=== PATIENT | female | born 1940 | race Caucasian/White ===

== ENCOUNTER 2017-05-11 06:55 | Day surgery (SDC) | payer MEDICARE, BC ==
[~2017-05-11 06:55] MED LIST: Lactated Ringers 1,000 ML IV SCH; Lidocaine 1%/Sod Bicarbonate in NS 8.4% 1 ML Syringe IV PRN; Sodium Chloride 0.9% 10 ML Syringe FLUSH PRN
--- NOTE | 2017-05-11 07:39 | PCM.PREANE ---
Preanesthetic Assessment - Anesthesia/Transfusion/Family Hx Anesthesia History: Prior Anesthesia Reaction Type of Anesthesia Reaction: Excessive Nausea/Vomiting Family History of Anesthesia Reaction: No Transfusion History: Prior Transfusion Without Reaction Intubation History: Unknown - Review of Systems General: No Symptoms Pulmonary: No Symptoms Cardiovascular: Palpitations, Other (Holter monitor recently. No changes noted. Dr. Viktor moyer with planned procedure. Atrial Fibrilation. ) Gastrointestinal: Other (GERD) Neurological: Other (Chronic Back Pain. Scheduled for a epidural steroid injection soon. ) Other: Reports: Easy Bruising (Anticoagulated off Pradaxa as planned for procedure. ), Diabetes, Depression, Anxiety - Physical Assessment NPO Status Date: 05/10/17 NPO Status Time: 23:00 Pulse: 54 O2 Sat by Pulse Oximetry: 97 Respiratory Rate: 16 Blood Pressure: 141/85 Temperature: 36.4 C Weight: 76.8 kg ASA Class: 3 Mental Status: Alert & Oriented x3 Airway Class: Mallampati = 1 Dentition: Reports: Dentures (Upper and Lower) Thyro-Mental Finger Breadths: 2 Mouth Opening Finger Breadths: 3 ROM/Head Extension: Full Lungs: Clear to Auscultation, Normal Respiratory Effort Cardiovascular: Irregular Rhythm - Imaging/EKG Impressions: Reviewed: A Fib, Rate 76, PVCs noted. - Allergies Allergies/Adverse Reactions: Allergies Allergy/AdvReac Type Severity Reaction Status Date / Time Penicillins Allergy Rash Verified 05/10/17 15:45 ranitidine [From Zantac] Allergy Nausea and Verified 05/10/17 15:45 Vomiting - Anesthesia Plan Free Text/Narrative:: Took her Cardizem this morning. She takes her Bisoprolol in the evening. - Acknowledgements Anesthesia Type Planned: MAC Pt an Appropriate Candidate for the Planned Anesthesia: Yes Alternatives and Risks of Anesthesia Discussed w Pt/Guardian: Yes Pt/Guardian Understands and Agrees with Anesthesia Plan: Yes PreAnesthesia Questionnaire HEENT History: Reports: Cataract, Impaired Vision, Retinal Detachment, Other ( See Below) Other HEENT History: has glasses, dentures Cardiovascular History: Reports: Afib, High Cholesterol, Hypertension, Other ( See Below) Other Cardiovascular History: palpitations Respiratory History: Reports: Sleep Apnea, SOB Gastrointestinal History: Reports: Gastritis, GERD, Hemorrhoids Other OB/BYN History: hysterectomy and mesh in place to hold her bladder up Musculoskeletal History: Reports: Arthritis, Gout, Osteoarthritis, Osteoporosis , RA, Other (See Below) Other Musculoskeletal History: muscle aches, spinal stenosis, spondylolthesis tenosynovits of ankle, degenerative joint disease, stress fracture Neurological History: Reports: Other (See Below) Other Neuro History: cervical pain, spinal stenosis Psychiatric History: Reports: Anxiety, Depression Endocrine/Metabolic History: Reports: Diabetes, Type II Hematologic History: Reports: None Immunologic History: Reports: None Oncologic (Cancer) History: Reports: None Dermatologic History: Reports: Other (See Below) Other Dermatologic History: pre skin cancers she has removed every year - Infectious Disease History Infectious Disease History: Reports: Chicken Pox, Measles - Past Surgical History HEENT Surgical History: Reports: None, Cataract Surgery, Retinal, Tonsillectomy Cardiovascular Surgical History: Reports: None Respiratory Surgical History: Reports: None GI Surgical History: Reports: Appendectomy, Colonoscopy Female Surgical History: Reports: Hysterectomy, Other (See Below) Other Female Surgeries/Procedures: rectocele repair Endocrine Surgical History: Reports: None Musculoskeletal Surgical History: Reports: Hip Replacement, Knee Replacement, Other (See Below) Other Musculoskeletal Surgeries/Procedures:: right ankle surgery, left total hip replacement, bilateral knee replacements Oncologic Surgical History: Reports: None Dermatological Surgical History: Reports: None - SUBSTANCE USE Smoking Status *Q: Former Smoker Tobacco Use Within Last Twelve Months: No Second Hand Smoke Exposure: No Recreational Drug Use History: No - HOME MEDS Home Medications: Home Meds Brinzolamide/Brimonidine Tart [Simbrinza 1%-0.2% Eye Drops] 2 drop EYELF BID 08/11 [History] Celecoxib [CeleBREX] 100 mg PO DAILY 03/27/16 [History] Cholecalciferol (Vitamin D3) [Vitamin D3] 1,000 units PO DAILY 03/27/16 [History ] Dabigatran Etexilate Mesylate [Pradaxa] 150 mg PO BID 03/27/16 [History] Folic Acid 1 mg PO DAILY 03/27/16 [History] Hydroxychloroquine [Plaquenil] 200 mg PO BID 03/27/16 [History] Methotrexate 15 mg PO FR 03/27/16 [History] Omeprazole 40 mg PO DAILY 03/27/16 [History] Sertraline [Zoloft] 50 mg PO BEDTIME 03/27/16 [History] Simvastatin [Zocor] 20 mg PO BEDTIME 03/27/16 [History] Diltiazem [Cardizem CD] 360 mg PO DAILY #30 cap.cd 03/31/16 [Rx] Amitriptyline [Elavil] 10 mg PO BEDTIME 05/10/17 [History] Bisoprolol [Zebeta] 5 mg PO DAILY 05/10/17 [History] Calcium Carbonate/Vitamin D3 [Calcium 600 + Vit D 200] 1 tab PO DAILY 05/10/17 [ History] Canagliflozin [Invokana] 300 mg PO DAILY 05/10/17 [History] Furosemide [Lasix] 20 mg PO Q48H 05/10/17 [History] Valsartan 160 mg PO DAILY 05/10/17 [History] - CURRENT (IN HOUSE) MEDS Current Meds: Current Medications Lactated Ringer's (Ringers, Lactated) 1,000 mls @ 125 mls/hr IV ASDIRECTED KARINA Lidocaine/Sodium Bicarbonate (Buffered Lidocaine 1% In Ns 8.4%) 0.25 ml IV ONETIME PRN PRN Reason: Prior to IV Start Sodium Chloride (Saline Flush) 10 ml FLUSH ASDIRECTED PRN PRN Reason: Keep Vein Open
[2017-05-11] MEDS ORDERED: Ketamine 500 mg/10 ML MDV ONE (08:10)
[2017-05-11] MEDS ORDERED: Propofol 200 MG/20 ML SDV ONE (08:10)
[2017-05-11] MEDS ORDERED: Ondansetron 4 MG/2 ML SDV ONE (08:10)
[2017-05-11] MEDS ORDERED: Lidocaine 1% 4 ML ONE (08:10)
--- NOTE | 2017-05-11 09:08 | PCM.OPNOTE ---
- General Post-Op/Procedure Note Date of Surgery/Procedure: 05/11/17 Operative Procedure(s): EGD with bx colonoscopy to cecum Pre Op Diagnosis: GERD and chronic diarrhea and positive FITS test Post-Op Diagnosis: Same Anesthesia Technique: MAC Primary Surgeon: Luis Miguel Perez EBL in mLs: 0 Complications: None Condition: Good
--- NOTE | 2017-05-11 09:14 | PCM48HPAN ---
Post Anesthesia Note - EVALUATION WITHIN 48HRS OF ANESTHETIC Vital Signs in Normal Range: Yes Patient Participated in Evaluation: Yes Respiratory Function Stable: Yes Airway Patent: Yes Cardiovascular Function Stable: Yes Hydration Status Stable: Yes Pain Control Satisfactory: Yes Nausea and Vomiting Control Satisfactory: Yes Mental Status Recovered: Yes
[2017-05-11 10:01] VITALS: BP 121/73
--- NOTE | 2017-05-11 12:28 | OR ---
DATE OF OPERATION: 05/11/2017 SURGEON: Luis Miguel Perez MD PREOPERATIVE DIAGNOSIS: Gastroesophageal reflux disease. POSTOPERATIVE DIAGNOSIS: Gastroesophageal reflux disease. OPERATION PERFORMED: Esophagogastroduodenoscopy with biopsy. FINDINGS: Normal second portion of the duodenum, duodenal bulb, and pyloric channel. Antrum showed little erythema, which was biopsied. Body, cardia, and fundus of the stomach did not see any pathology. GE junction was located at 40 cm and showed some mild chronic esophagitis, but no acute process. Rest of the esophagus was free of any disease. ANESTHESIA: Procedure done under IV sedation. DESCRIPTION OF PROCEDURE: The patient was taken to the endoscopy room, placed in a supine position, connected to monitoring equipment, given IV sedation, and placed in left lateral position. Bite block was inserted. Video Olympus gastroscope was placed in the posterior oropharynx under direct vision, threaded past the cricopharyngeus, down the esophagus, and into the stomach. The stomach was insufflated. The scope was passed through the pylorus to the second portion of the duodenum. It was slowly withdrawn showing normal second portion of the duodenum, duodenal bulb, and pyloric channel. Antrum showed little redness and was biopsied. Body and cardia of the stomach were unremarkable. J-maneuver showed portion of the fundus and an intact hiatus. The scope was withdrawn to the GE junction, which showed mild chronic esophagitis, but no acute disease. Rest of the esophagus was viewed as the scope was withdrawn and was unremarkable. The patient tolerated the procedure. IV sedation continued for colonoscopy. Specimen sent to pathology in a labeled container. ESTIMATED BLOOD LOSS: MMODAL /[id number]
--- NOTE | 2017-05-11 12:34 | OR ---
DATE OF OPERATION: 05/11/2017 SURGEON: Luis Miguel Perez MD PREOPERATIVE DIAGNOSIS: Chronic diarrhea, positive FIT test. POSTOPERATIVE DIAGNOSIS: Chronic diarrhea, positive FIT test. OPERATION PERFORMED: Colonoscopy to the cecum with collection of specimen for analysis. FINDINGS: An area of diverticulosis, which is severe, in the sigmoid colon, which shows some spasm and probably accounts for her multiple trips to the bathroom a day. There are no angiodysplasias, neoplasias, large tumor, masses, ulcerations, or notable hemorrhoids. ANESTHESIA: Done under IV sedation. RECOMMENDATION: Bowel softeners. DESCRIPTION OF PROCEDURE: The patient was taken to the endoscopy room, placed in a supine position, connected to monitoring equipment, given IV sedation for upper GI endoscopy, and this was continued for colonoscopy. She was placed in the left lateral position. Perianal area was inspected and it was normal. Rectal exam showed good sphincter tone. A video Olympus colonoscope was then introduced into the rectum and threaded up to an area in the sigmoid colon with spasm. With careful advancement, the scope was able to pass through this segment and then on to the cecum, where the appendicular orifice was noted. Prep was excellent. [place] cleansing score grade A. The scope was inserted into the ileum, which was normal. It was then slowly withdrawn collecting stool for analysis. The cecum, ileum, ascending colon, transverse colon, descending colon, sigmoid colon, and rectum were reviewed. Retroflex was not done. The above noted was found. The patient tolerated the procedure and was sent to recovery room in a stable condition. ESTIMATED BLOOD LOSS: MMODAL /[id number]
== END 2017-05-11 09:55 | disposition home or self-care (01) ==
LOC: JD.SDS 06:55
PROVIDERS: ATTEND Surgery
DX: K29.50 Unspecified chronic gastritis without bleeding (principal); K57.30 Diverticulosis of large intestine without perforation or abscess without bleeding; K25.9 Gastric ulcer, unspecified as acute or chronic, without hemorrhage or perforation; K31.9 Disease of stomach and duodenum, unspecified; E11.9 Type 2 diabetes mellitus without complications; E78.5 Hyperlipidemia, unspecified; F41.9 Anxiety disorder, unspecified; K21.9 Gastro-esophageal reflux disease without esophagitis; Z79.01 Long term (current) use of anticoagulants; F32.9 Major depressive disorder, single episode, unspecified; Z90.49 Acquired absence of other specified parts of digestive tract; Z88.0 Allergy status to penicillin; Z88.8 Allergy status to other drugs, medicaments and biological substances; Z96.642 Presence of left artificial hip joint; Z96.698 Presence of other orthopedic joint implants; Z90.710 Acquired absence of both cervix and uterus; Z98.51 Tubal ligation status; Z79.899 Other long term (current) drug therapy; Z87.891 Personal history of nicotine dependence
CPT/HCPCS: 43239; 45378; 87046; 87427; 87493; 89055; J2405; J7120; 00810; 88305; J2704

== ENCOUNTER 2017-08-31 09:28 | Inpatient (IN) | payer MEDICARE, BC ==
[2017-08-31] MEDS ORDERED: Metoclopramide 10 MG/2 ML SDV IVPUSH ONE (10:05)
[2017-08-31] MEDS ORDERED: Diltiazem 25 MG/5 ML SDV IVPUSH ONE ×3 (10:08→12:24)
[2017-08-31] MEDS ORDERED: Sodium Chloride 0.9% 10 ML Syringe FLUSH PRN (10:08)
--- NOTE | 2017-08-31 10:10 | EDM.PDOC ---
ED HPI GENERAL MEDICAL PROBLEM - General Chief Complaint: Respiratory Problem Stated Complaint: [facility] Time Seen by Provider: 08/31/17 09:43 Source of Information: Reports: Patient, RN Notes Reviewed - History of Present Illness INITIAL COMMENTS - FREE TEXT/NARRATIVE: 76-year-old female has been brought in by [facility] with symptoms generalized weakness, nausea, "dry heaves" and some anterior chest discomfort. It sounds like her discomfort and the nausea dry heaves started during the night and towards compliance lead. She has had dry nonproductive cough for about 4 -5 days. She is not sure if she has had fever or chills with that or not. Her cough does continue. Her chest discomfort does not go to the shoulder or arm. She does have history of chronic atrial fib on eloquis blood thinner. She thinks she is been in that for "long time", not really sure if she is in that chronically or if she goes in and out. She is somewhat aware of palpitations and rapid heart rate this morning but cannot verbalize when she believes this may have started. Because she was not feeling well this morning she has not taken her usual morning meds although she did use her albuterol inhaler. Therefore her diltiazem 360 was not taken this morning as usual. She is not aware of personal history of coronary artery disease. She is a previous smoker having quit about 13 years ago. Chest Pain Score (Numeric/FACES): 4 - Related Data Allergies Allergy/AdvReac Type Severity Reaction Status Date / Time Penicillins Allergy Rash Verified 08/31/17 09:36 ranitidine [From Zantac] Allergy Nausea and Verified 08/31/17 09:36 Vomiting Home Meds: Home Meds Brinzolamide/Brimonidine Tart [Simbrinza 1%-0.2% Eye Drops] 2 drop EYELF BID 08/11 [History] Celecoxib [CeleBREX] 100 mg PO DAILY 03/27/16 [History] Cholecalciferol (Vitamin D3) [Vitamin D3] 1,000 units PO DAILY 03/27/16 [History ] Dabigatran Etexilate Mesylate [Pradaxa] 150 mg PO BID 03/27/16 [History] Folic Acid 1 mg PO DAILY 03/27/16 [History] Hydroxychloroquine [Plaquenil] 200 mg PO BID 03/27/16 [History] Methotrexate 15 mg PO FR 03/27/16 [History] Omeprazole 40 mg PO DAILY 03/27/16 [History] Sertraline [Zoloft] 50 mg PO BEDTIME 03/27/16 [History] Simvastatin [Zocor] 20 mg PO BEDTIME 03/27/16 [History] Diltiazem [Cardizem CD] 360 mg PO DAILY #30 cap.cd 03/31/16 [Rx] Amitriptyline [Elavil] 10 mg PO BEDTIME 05/10/17 [History] Bisoprolol [Zebeta] 5 mg PO DAILY 05/10/17 [History] Calcium Carbonate/Vitamin D3 [Calcium 600 + Vit D 200] 1 tab PO DAILY 05/10/17 [ History] Canagliflozin [Invokana] 300 mg PO DAILY 05/10/17 [History] Furosemide [Lasix] 20 mg PO DAILY 05/10/17 [History] Valsartan 320 mg PO DAILY 05/10/17 [History] Acetaminophen/Codeine [Tylenol with Codeine No.3 300MG/30MG] 1 tab PO Q4H PRN [History] Albuterol Sulfate [Ventolin Hfa] 18 gm IH ASDIRECTED PRN 08/31/17 [History] Apixaban [Eliquis] 5 mg PO DAILY 08/31/17 [History] Aspirin [Peach Aspirin] 81 mg PO DAILY 08/31/17 [History] Cyclobenzaprine [Flexeril] 10 mg PO BID 08/31/17 [History] Cyclobenzaprine [Flexeril] 10 mg PO DAILY PRN 08/31/17 [History] Multivitamin [Daily Rodrigo] 1 each PO DAILY 08/31/17 [History] Potassium Chloride 10 meq PO DAILY 08/31/17 [History] Vortioxetine Hydrobromide [Brintellix] 10 mg PO DAILY 08/31/17 [History] Past Medical History HEENT History: Reports: Cataract, Impaired Vision, Retinal Detachment, Other ( See Below) Other HEENT History: has glasses, dentures Cardiovascular History: Reports: Afib, High Cholesterol, Hypertension, Other ( See Below) Other Cardiovascular History: palpitations Respiratory History: Reports: Sleep Apnea, SOB Gastrointestinal History: Reports: Gastritis, GERD, Hemorrhoids Other OB/BYN History: hysterectomy and mesh in place to hold her bladder up Musculoskeletal History: Reports: Arthritis, Gout, Osteoarthritis, Osteoporosis , RA, Other (See Below) Other Musculoskeletal History: muscle aches, spinal stenosis, spondylolthesis tenosynovits of ankle, degenerative joint disease, stress fracture Neurological History: Reports: Other (See Below) Other Neuro History: cervical pain, spinal stenosis Psychiatric History: Reports: Anxiety, Depression Endocrine/Metabolic History: Reports: Diabetes, Type II Hematologic History: Reports: None Immunologic History: Reports: None Oncologic (Cancer) History: Reports: None Dermatologic History: Reports: Other (See Below) Other Dermatologic History: pre skin cancers she has removed every year - Infectious Disease History Infectious Disease History: Reports: Chicken Pox, Measles - Past Surgical History HEENT Surgical History: Reports: None, Cataract Surgery, Retinal, Tonsillectomy Cardiovascular Surgical History: Reports: None Respiratory Surgical History: Reports: None GI Surgical History: Reports: Appendectomy, Colonoscopy Female Surgical History: Reports: Hysterectomy, Other (See Below) Other Female Surgeries/Procedures: rectocele repair Endocrine Surgical History: Reports: None Musculoskeletal Surgical History: Reports: Hip Replacement, Knee Replacement, Other (See Below) Other Musculoskeletal Surgeries/Procedures:: right ankle surgery, left total hip replacement, bilateral knee replacements Oncologic Surgical History: Reports: None Dermatological Surgical History: Reports: None Social & Family History - Family History Family Medical History: Noncontributory Oncologic: Reports: Breast - Tobacco Use Smoking Status *Q: Former Smoker Years of Tobacco use: 12 Packs/Tins Daily: 1 Used Tobacco, but Quit: Yes Month Tobacco Last Used: 1993 Second Hand Smoke Exposure: No - Caffeine Use Caffeine Use: Reports: Coffee - Recreational Drug Use Recreational Drug Use: No - Living Situation & Occupation Living situation: Reports: , Alone Occupation: Retired ED ROS GENERAL - Review of Systems Review Of Systems: See Below Constitutional: Reports: Fever, Chills (Possible), Malaise, Weakness ( Generalized) HEENT: Denies: Sinus Problem, Throat Pain Respiratory: Reports: Shortness of Breath, Cough (Nonproductive for about the past 5 days). Denies: Wheezing (This morning), Pleuritic Chest Pain Cardiovascular: Reports: Chest Pain (She does have anterior chest discomfort this morning), Lightheadedness, Palpitations (Mild). Denies: Edema Endocrine: Reports: Fatigue GI/Abdominal: Reports: Nausea, Vomiting (Dry heaves this morning). Denies: Abdominal Pain Musculoskeletal: Denies: Shoulder Pain, Arm Pain, Back Pain Skin: Reports: No Symptoms Neurological: Reports: Dizziness ED EXAM, GENERAL - Physical Exam Exam: See Below (Mild) General Appearance: Alert Eye Exam: Bilateral Eye: PERRL Nose: Normal Inspection Throat/Mouth: Normal Inspection, Normal Oropharynx Head: Atraumatic. No: Facial Swelling Neck: Supple, Full Range of Motion Respiratory/Chest: No Respiratory Distress, Lungs Clear Cardiovascular: Tachycardia, Irregularly Irregular GI/Abdominal: Soft, Non-Tender Back Exam: No: CVA Tenderness (L), CVA Tenderness (R) Extremities: Normal Inspection, Normal Range of Motion. No: Pedal Edema, Leg Pain, Increased Warmth, Redness Neurological: No Motor/Sensory Deficits Skin Exam: Warm, Dry, Normal Color EKG INTERPRETATION EKG Date: 08/31/17 Rhythm: A-Fib QRS: Normal ST-T: Depressed (V5 and V6) Course - Vital Signs Last Recorded V/S: Last Vital Signs Temp 97.4 F 08/31/17 09:36 Pulse 122 H 08/31/17 13:33 Resp 13 08/31/17 09:36 BP 96/60 08/31/17 13:33 Pulse Ox 89 L 08/31/17 09:36 - Orders/Labs/Meds Orders: Active Orders 24 hr Category Date Time Status Communication Order [RC] STAT Care 08/31/17 13:32 Active EKG 12 Lead [EKG Documentation Completion] [RC] STAT Care 08/31/17 10:04 Active Peripheral IV Care [RC] . DIRECTED Care 08/31/17 10:08 Active INFLUENZA A+B AG SCREEN [RM] Stat Lab 08/31/17 13:01 Ordered Diltiazem 125 mg Med 08/31/17 12:30 Active Sodium Chloride 0.9% [Normal Saline] 100 ml IV TITRATE Sodium Chloride 0.9% [Saline Flush] Med 08/31/17 10:08 Active 10 ml FLUSH ASDIRECTED PRN Peripheral IV Insertion Adult [OM.PC] Stat Oth 08/31/17 10:04 Ordered Medication Orders Diltiazem HCl 125 mg/ Sodium (Chloride) 125 mls @ 5 mls/hr IV TITRATE KARINA; 5 MG /HR PRN Reason: Protocol Last Titration: 08/31/17 13:29 Dose: 10 mg/hr, 10 mls/hr Admin: 08/31/17 12:43 Dose: 5 mg/hr, 5 mls/hr Sodium Chloride (Saline Flush) 10 ml FLUSH ASDIRECTED PRN PRN Reason: Keep Vein Open Last Admin: 08/31/17 10:17 Dose: 10 ml Labs: Laboratory Tests 08/31/17 08/31/17 08/31/17 Range/Units 10:23 10:23 10:23 WBC 14.56 H (3.98-10.04) K/mm3 RBC 5.41 H (3.98-5.22) M/mm3 Hgb 16.1 H (11.2-15.7) gm/L Hct 51.1 H (34.1-44.9) % MCV 94.5 (79.4-94.8) fl MCH 29.8 (25.6-32.2) pg MCHC 31.5 L (32.2-35.5) g/dl RDW Std Deviation 54.6 H (36.4-46.3) fL Plt Count 179 L (182-369) K/mm3 MPV 10.2 (9.4-12.3) fl Neut % (Auto) 84.3 H (34.0-71.1) % Lymph % (Auto) 6.7 L (19.3-51.7) % [place] % (Auto) 8.2 (4.7-12.5) % Eos % (Auto) 0.2 L (0.7-5.8) Baso % (Auto) 0.3 (0.1-1.2) % Neut # (Auto) 12.28 H (1.56-6.13) K/mm3 Lymph # (Auto) 0.97 L (1.18-3.74) K/mm3 [place] # (Auto) 1.19 H (0.24-0.36) K/mm3 Eos # (Auto) 0.03 L (0.04-0.36) K/mm3 Baso # (Auto) 0.05 (0.01-0.08) K/mm3 Manual Slide Review Abnormal smear Sodium 139 (136-145) mEq/L Potassium 4.3 (3.5-5.1) mEq/L Chloride 102 (98-107) mEq/L Carbon Dioxide 23 (21-32) mEq/L Anion Gap 18.3 H (5-15) BUN 16 (7-18) mg/dL Creatinine 1.0 (0.55-1.02) mg/dL Est Cr Clr Drug Dosing 44.41 mL/min Estimated GFR (MDRD) 54 (>60) mL/min BUN/Creatinine Ratio 16.0 (14-18) Glucose 189 H (83-115) mg/dL Calcium 9.6 (8.5-10.1) mg/dL Total Bilirubin 0.7 (0.2-1.0) mg/dL AST 20 (15-37) U/L ALT 33 (14-59) U/L Alkaline Phosphatase 72 (46-116) U/L Troponin I 0.209 H* (0.00-0.056) ng/mL NT-Pro-B Natriuret Pep 6045 H (0-125) pg/mL Total Protein 7.4 (6.4-8.2) g/dl Albumin 3.7 (3.4-5.0) g/dl Globulin 3.7 gm/dL Albumin/Globulin Ratio 1.0 (1-2) 08/31/17 Range/Units 11:50 WBC (3.98-10.04) K/mm3 RBC (3.98-5.22) M/mm3 Hgb (11.2-15.7) gm/L Hct (34.1-44.9) % MCV (79.4-94.8) fl MCH (25.6-32.2) pg MCHC (32.2-35.5) g/dl RDW Std Deviation (36.4-46.3) fL Plt Count (182-369) K/mm3 MPV (9.4-12.3) fl Neut % (Auto) (34.0-71.1) % Lymph % (Auto) (19.3-51.7) % [place] % (Auto) (4.7-12.5) % Eos % (Auto) (0.7-5.8) Baso % (Auto) (0.1-1.2) % Neut # (Auto) (1.56-6.13) K/mm3 Lymph # (Auto) (1.18-3.74) K/mm3 [place] # (Auto) (0.24-0.36) K/mm3 Eos # (Auto) (0.04-0.36) K/mm3 Baso # (Auto) (0.01-0.08) K/mm3 Manual Slide Review Sodium (136-145) mEq/L Potassium (3.5-5.1) mEq/L Chloride (98-107) mEq/L Carbon Dioxide (21-32) mEq/L Anion Gap (5-15) BUN (7-18) mg/dL Creatinine (0.55-1.02) mg/dL Est Cr Clr Drug Dosing mL/min Estimated GFR (MDRD) (>60) mL/min BUN/Creatinine Ratio (14-18) Glucose (83-115) mg/dL Calcium (8.5-10.1) mg/dL Total Bilirubin (0.2-1.0) mg/dL AST (15-37) U/L ALT (14-59) U/L Alkaline Phosphatase (46-116) U/L Troponin I 0.364 H* (0.00-0.056) ng/mL NT-Pro-B Natriuret Pep (0-125) pg/mL Total Protein (6.4-8.2) g/dl Albumin (3.4-5.0) g/dl Globulin gm/dL Albumin/Globulin Ratio (1-2) Meds: Medications Generic Name Dose Route Start Last Admin Trade Name Freq PRN Reason Stop Dose Admin Diltiazem HCl 125 mg/ Sodium 125 mls @ 5 mls/hr 08/31/17 12:30 08/31/17 13:29 Chloride IV 10 mg/hr TITRATE KARINA 10 mls/hr Protocol Titration 5 MG/HR Sodium Chloride 10 ml 08/31/17 10:08 08/31/17 10:17 Saline Flush FLUSH 10 ml ASDIRECTED PRN Administration Keep Vein Open Discontinued Medications Generic Name Dose Route Start Last Admin Trade Name Freq PRN Reason Stop Dose Admin Diltiazem HCl 10 mg 08/31/17 10:08 08/31/17 10:17 Diltiazem IVPUSH 08/31/17 10:09 10 mg ONETIME ONE Administration Diltiazem HCl 10 mg 08/31/17 10:57 08/31/17 11:03 Diltiazem IVPUSH 08/31/17 10:58 10 mg ONETIME ONE Administration Diltiazem HCl 10 mg 08/31/17 12:24 08/31/17 12:39 Diltiazem IVPUSH 08/31/17 12:25 10 mg ONETIME ONE Administration Metoclopramide HCl 5 mg 08/31/17 10:05 08/31/17 10:17 Reglan IVPUSH 08/31/17 10:06 5 mg ONETIME ONE Administration - Re-Assessments/Exams Free Text/Narrative Re-Assessment/Exam: 08/31/17 13:28. Treated with diltiazem 10 mg IV shortly after patient arrival this did bring her rate down to about 120, we did treat with another 10 mg IV 2 over the next couple of hours and also diltiazem 5 mg drip started. Her rate did drop down to the 105-110 range but now more recently did go back up into the 120s and low 130s. We did increase her drip to 10 mg/hr. her first troponin came back at 0.2. Her second troponin came back at 0.364. It is strongly suspected that this is some demand ischemia from her more rapid heart rate this morning. That will be further monitored with serial troponins. We will be admitting her to ICU with her being on the diltiazem drip. She does feel much better from arrival. Her chest pain is gone. When further questioned she had not taken her diltiazem this morning due to her not feeling well when she first got up this morning. Departure - Departure Time of Disposition: 12:40 Disposition: Admitted As Inpatient 68 Condition: Fair Clinical Impression: Atrial fibrillation with RVR, Atypical chest pain - Discharge Information Referrals: Angel Tate MD [Primary Care Provider] - Forms: ED Department Discharge ED Communication - Discussed Case With (1) Discussed Case With (1): Admitting Provider (Dr Marrero, decision to admit at [facility] 12:44.) - My Orders Last 24 Hours: My Active Orders 08/31/17 10:04 EKG 12 Lead [EKG Documentation Completion] [RC] STAT Peripheral IV Insertion Adult [OM.PC] Stat 08/31/17 10:08 Peripheral IV Care [RC] . DIRECTED Sodium Chloride 0.9% [Saline Flush] 10 ml FLUSH ASDIRECTED PRN 08/31/17 12:30 Diltiazem 125 mg Sodium Chloride 0.9% [Normal Saline] 100 ml IV TITRATE 08/31/17 13:01 INFLUENZA A+B AG SCREEN [RM] Stat 08/31/17 13:32 Communication Order [RC] STAT - Assessment/Plan Last 24 Hours: My Active Orders 08/31/17 10:04 EKG 12 Lead [EKG Documentation Completion] [RC] STAT Peripheral IV Insertion Adult [OM.PC] Stat 08/31/17 10:08 Peripheral IV Care [RC] . DIRECTED Sodium Chloride 0.9% [Saline Flush] 10 ml FLUSH ASDIRECTED PRN 08/31/17 12:30 Diltiazem 125 mg Sodium Chloride 0.9% [Normal Saline] 100 ml IV TITRATE 08/31/17 13:01 INFLUENZA A+B AG SCREEN [RM] Stat 08/31/17 13:32 Communication Order [RC] STAT
--- NOTE | 2017-08-31 10:54 | CR ---
Chest: Frontal view of the chest is obtained. Comparison: Prior chest x-ray of 03/28/16. Slight increased lung markings are seen on the right side as an interval change from previous exam. Please correlate if patient has any symptoms of bronchitis. Findings could also relate to technique from slight patient rotation and portable technique. Lungs otherwise are clear. Heart size is normal. Mild tortuosity of the thoracic aorta is seen. Bony structures are osteopenic. Impression: 1. Questionable increased lung markings within the right chest as described above. 2. Other portions of the chest are felt to be stable. Nothing acute is otherwise seen. Diagnostic code #2
[2017-08-31] MEDS: Diltiazem 125 MG in Sodium Chloride 0.9% 100 ML IV SCH ×2 (12:43→23:19)
--- NOTE | 2017-08-31 16:08 | PCM.HP ---
H&P History of Present Illness - General Date of Service: 08/31/17 Admit Problem/Dx: Admission Diagnosis/Problem Admission Diagnosis/Problem Atrial fibrillation with rapid ventricular response Source of Information: Patient, Old Records, Provider, RN History Limitations: Reports: No Limitations - History of Present Illness Initial Comments - Free Text/Narative: Amrita Velez is a 76 yo female who presents to our ED today (08/31/17) via [facility]" with symptoms of generalized weakness, nausea, dry heaves, and anterior chest discomfort. Symptoms reportedly started earlier this morning. She does report a dry nonproductive cough for about the past 4-5 days. She's not sure if she's had any fever or chills with these symptoms. Chest discomfort does not radiate. She does have a history of chronic A. fib and is on a course for blood thinning. She is unsure if it is constant A. fib or if it is proximal. She's not feeling well this morning so she did not take her morning meds however she did take her albuterol inhaler. Because of this she did not receive her usual dose of diltiazem 360. She is unsure if she has a history of CAD. She is a prior smoker who quit 13 years ago. In the ED temperature was 97.4. Pulse 122. Respirations 13. Blood pressure 96 /60. Pulse ox 89%. EKG was obtained which shows A. fib with ST depression in V5 and V6. Labs are obtained: W CBC is elevated 14.56. Hemoglobin high at 16.1. Hematocrit high at 51.1. She is normocytic. Platelet are low at 179, 000. Neutrophils are elevated at 84.3%. Sodium was good at 139. Potassium 4.3. Chloride 102. Anion gap is high at 18.3. BUN is 1.0 EGFR is 54. Glucose is high at 189. Calcium is 9.6. Liver enzymes looked good with AST at 20, ALT at 33, alkaline phosphatase at 7.2. Troponin is 0.209. ProBNP is 6045. Protein 7.4. Albumin 3.7. Troponins repeated and is elevated to 0.364. She was given 10 mg IV push of diltiazem 3. She was also started on a Cardizem drip of 5 mg. Her rate did drop down to the 105-110 range however did come back up into the 120s and low 130s. Her drip was increased 10 mg per hour. Once her believed to be elevated due to demand ischemia. Chest x-ray was obtained and interpreted by Dr. Kent as having slightly increased lung markings on the right side is an interval change from previous exam. Please correlate if patient has symptoms of bronchitis. Advised also related to technique from slight patient rotation and portable technique. Lungs otherwise are clear. Heart size is normal. Mild tortuosity of the thoracic aorta seen. Bony structures are osteopenic. There is a history of: Retinal detachment, A. fib, HLD, HTN, palpitations, sleep apnea, GERD, gastritis, arthritis, gout, OA, osteoporosis, RA, spinal stenosis, DJD, anxiety, depression, type II DM. She is a former smoker. She says really admitted to the ICU. She is a full code. Her PCP is Dr. Yasemin Liz at [facility]. Chest Pain Score (Numeric/FACES): 3 - Related Data Allergies/Adverse Reactions: Allergies Allergy/AdvReac Type Severity Reaction Status Date / Time Penicillins Allergy Rash Verified 08/31/17 14:48 ranitidine [From Zantac] Allergy Nausea and Verified 08/31/17 14:48 Vomiting Home Medications: Home Meds Brinzolamide/Brimonidine Tart [Simbrinza 1%-0.2% Eye Drops] 2 drop EYELF BID 08/11 [History] Celecoxib [CeleBREX] 100 mg PO DAILY 03/27/16 [History] Cholecalciferol (Vitamin D3) [Vitamin D3] 1,000 units PO DAILY 03/27/16 [History ] Dabigatran Etexilate Mesylate [Pradaxa] 150 mg PO BID 03/27/16 [History] Folic Acid 1 mg PO DAILY 03/27/16 [History] Hydroxychloroquine [Plaquenil] 200 mg PO BID 03/27/16 [History] Methotrexate 15 mg PO FR 03/27/16 [History] Omeprazole 40 mg PO DAILY 03/27/16 [History] Sertraline [Zoloft] 50 mg PO BEDTIME 03/27/16 [History] Simvastatin [Zocor] 20 mg PO BEDTIME 03/27/16 [History] Diltiazem [Cardizem CD] 360 mg PO DAILY #30 cap.cd 03/31/16 [Rx] Amitriptyline [Elavil] 10 mg PO BEDTIME 05/10/17 [History] Bisoprolol [Zebeta] 5 mg PO DAILY 05/10/17 [History] Calcium Carbonate/Vitamin D3 [Calcium 600 + Vit D 200] 1 tab PO DAILY 05/10/17 [ History] Canagliflozin [Invokana] 300 mg PO DAILY 05/10/17 [History] Furosemide [Lasix] 20 mg PO DAILY 05/10/17 [History] Valsartan 320 mg PO DAILY 05/10/17 [History] Acetaminophen/Codeine [Tylenol with Codeine No.3 300MG/30MG] 1 tab PO Q4H PRN [History] Albuterol Sulfate [Ventolin Hfa] 18 gm IH ASDIRECTED PRN 08/31/17 [History] Apixaban [Eliquis] 5 mg PO DAILY 08/31/17 [History] Aspirin [Dooly Aspirin] 81 mg PO DAILY 08/31/17 [History] Cyclobenzaprine [Flexeril] 10 mg PO BID 08/31/17 [History] Cyclobenzaprine [Flexeril] 10 mg PO DAILY PRN 08/31/17 [History] Multivitamin [Daily Rodrigo] 1 each PO DAILY 08/31/17 [History] Potassium Chloride 10 meq PO DAILY 08/31/17 [History] Vortioxetine Hydrobromide [Brintellix] 10 mg PO DAILY 08/31/17 [History] Past Medical History HEENT History: Reports: Cataract, Impaired Vision, Retinal Detachment, Other ( See Below) Other HEENT History: has glasses, dentures Cardiovascular History: Reports: Afib, High Cholesterol, Hypertension, Other ( See Below) Other Cardiovascular History: palpitations Respiratory History: Reports: Sleep Apnea, SOB Gastrointestinal History: Reports: Gastritis, GERD, Hemorrhoids Genitourinary History: Reports: None Other OB/BYN History: hysterectomy and mesh in place to hold her bladder up Musculoskeletal History: Reports: Arthritis, Gout, Osteoarthritis, Osteoporosis , RA, Other (See Below) Other Musculoskeletal History: muscle aches, spinal stenosis, spondylolthesis tenosynovits of ankle, degenerative joint disease, stress fracture Neurological History: Reports: Other (See Below) Other Neuro History: cervical pain, spinal stenosis Psychiatric History: Reports: Anxiety, Depression Endocrine/Metabolic History: Reports: Diabetes, Type II Other Endocrine/Metabolic History: "Pre-diabetic" Hematologic History: Reports: None Immunologic History: Reports: None Oncologic (Cancer) History: Reports: None Other Oncologic History: "Skin cancer to forehead. I get it removed every year" Dermatologic History: Reports: Other (See Below) Other Dermatologic History: skin cancers she has removed every year to forehead - Infectious Disease History Infectious Disease History: Reports: Chicken Pox, Measles - Past Surgical History HEENT Surgical History: Reports: None, Cataract Surgery, Retinal, Tonsillectomy Cardiovascular Surgical History: Reports: None Respiratory Surgical History: Reports: None GI Surgical History: Reports: Appendectomy, Colonoscopy Female Surgical History: Reports: Hysterectomy, Other (See Below) Other Female Surgeries/Procedures: rectocele repair Endocrine Surgical History: Reports: None Musculoskeletal Surgical History: Reports: Hip Replacement, Knee Replacement, Other (See Below) Other Musculoskeletal Surgeries/Procedures:: bilateral great toe surgery ( "replaced"), left total hip replacement, bilateral knee replacements Oncologic Surgical History: Reports: None Dermatological Surgical History: Reports: None Social & Family History - Family History Family Medical History: Noncontributory Musculoskeletal: Reports: Arthritis Neurological: Reports: CVA, TIA Other Neurological Family History: Grandfather had a stroke. Brother had TIAs. Psychiatric: Reports: Anxiety, Depression Other Psychiatric Family History: Mother and sister. Hematologic: Reports: Other (See Below) Other Hematologic Family History: Mother has antibodies in her blood and has to have frequent transfusions. Oncologic: Reports: Breast, Pancreatic Other Oncologic Family History: Sister - Pancreatic cancer. Uncle - lung cancer. Daughter - breast cancer - Tobacco Use Smoking Status *Q: Former Smoker Years of Tobacco use: 12 Packs/Tins Daily: 1 Used Tobacco, but Quit: Yes Month Tobacco Last Used: 1993 Second Hand Smoke Exposure: No - Caffeine Use Caffeine Use: Reports: Coffee, Tea Other Caffeine Use: Daily use - Recreational Drug Use Recreational Drug Use: No - Living Situation & Occupation Living situation: Reports: , Alone Occupation: Retired H&P Review of Systems - Review of Systems: Review Of Systems: See Below General: Reports: Fever, Chills, Malaise, Weakness, Decreased Appetite HEENT: Denies: Ear Pain, Eye Pain, Headaches, Rhinitis, Sinus Congestion Pulmonary: Reports: Shortness of Breath, Wheezing, Pleuritic Chest Pain, Cough. Denies: Sputum Cardiovascular: Reports: Chest Pain, Palpitations, Dyspnea on Exertion. Denies : Lightheadedness, Syncope Gastrointestinal: Reports: Decreased Appetite. Denies: Abdominal Pain, Constipation, Diarrhea, Nausea, Vomiting Genitourinary: Reports: No Symptoms. Denies: Dysuria, Frequency, Burning, Pain , Urgency Musculoskeletal: Reports: No Symptoms. Denies: Neck Pain, Shoulder Pain, Arm Pain, Back Pain Skin: Reports: No Symptoms Psychiatric: Reports: No Symptoms Neurological: Reports: No Symptoms Hematologic/Lymphatic: Reports: No Symptoms Immunologic: Reports: No Symptoms Exam - Exam Exam: See Below - Vital Signs Vital Signs: Last Vital Signs Temp 97.8 F 08/31/17 15:56 Pulse 122 H 08/31/17 13:33 Resp 15 08/31/17 15:56 BP 112/60 08/31/17 15:56 Pulse Ox 97 08/31/17 15:56 Weight: 170 lb - Exam Quality Assessment: Supplemental Oxygen, DVT Prophylaxis General: Alert, Oriented, Cooperative, Mild Distress HEENT: PERRLA, Hearing Intact, Mucosa Moist & [place], Nares Patent, Normal Nasal Septum, Posterior Pharynx Clear, Conjunctiva Clear, EOMI, EACs Clear, TMs Clear Neck: Supple, Trachea Midline. No: JVD Lungs: Normal Respiratory Effort, Decreased Breath Sounds, Wheezing (globally ) Cardiovascular: Irregular Rhythm, Tachycardia GI/Abdominal Exam: Normal Bowel Sounds, Soft, Non-Tender, No Organomegaly, No Distention, No Abnormal Bruit, No Mass, Pelvis Stable (Female) Exam: Deferred Rectal (Female) Exam: Deferred Back Exam: Normal Inspection, Full Range of Motion Extremities: Normal Inspection, Normal Range of Motion, Non-Tender, No Pedal Edema, Normal Capillary Refill Peripheral Pulses: 2+: Posterior Tibial (L), Posterior Tibial (R), Dorsalis Pedis (L), Dorsalis Pedis (R), 3+: Radial (L), Radial (R) Skin: Warm, Dry, Intact Neurological: Cranial Nerves Intact (grossly ) Neuro Extensive - Mental Status: Alert, Oriented x3, Normal Mood/Affect, Normal Cognition, Memory Intact Psychiatric: Alert, Normal Affect, Normal Mood - Patient Data Result Diagrams: 08/31/17 10:23 08/31/17 10:23 *Q Meaningful Use (ADM) - VTE *Q VTE Criteria *Q: - Stroke *Q Stroke Criteria *Q: - AMI *Q AMI Criteria *Q: - Problem List (1) Atrial fibrillation with rapid ventricular response SNOMED Code(s): 415815053881324 ICD Code: I48.91 - UNSPECIFIED ATRIAL FIBRILLATION Status: Acute Priority : High Current Visit: Yes (2) Atypical chest pain SNOMED Code(s): 839758455 ICD Code: R07.89 - OTHER CHEST PAIN Status: Acute Priority: High Current Visit: Yes (3) HLD (hyperlipidemia) SNOMED Code(s): 07533470 ICD Code: E78.5 - HYPERLIPIDEMIA, UNSPECIFIED Status: Chronic Priority: Low Current Visit: No Qualifiers: Hyperlipidemia type: unspecified Qualified Code(s): E78.5 - Hyperlipidemia , unspecified (4) HTN (hypertension) SNOMED Code(s): 71930009 ICD Code: I10 - ESSENTIAL (PRIMARY) HYPERTENSION Status: Chronic Priority : Low Current Visit: No Qualifiers: Hypertension type: unspecified Qualified Code(s): I10 - Essential (primary ) hypertension (5) Sleep apnea SNOMED Code(s): 65079209 ICD Code: G47.30 - SLEEP APNEA, UNSPECIFIED Status: Chronic Priority: Low Current Visit: Yes Qualifiers: Sleep apnea type: unspecified type Qualified Code(s): G47.30 - Sleep apnea , unspecified (6) GERD (gastroesophageal reflux disease) SNOMED Code(s): 142289396 ICD Code: K21.9 - GASTRO-ESOPHAGEAL REFLUX DISEASE WITHOUT ESOPHAGITIS Status: Chronic Priority: Low Current Visit: No (7) Rheumatoid arteritis SNOMED Code(s): 072741268 ICD Code: I00 - RHEUMATIC FEVER WITHOUT HEART INVOLVEMENT Status: Chronic Priority: Low Current Visit: No (8) Age related osteoporosis SNOMED Code(s): 212691073 ICD Code: M81.0 - AGE-RELATED OSTEOPOROSIS W/O CURRENT PATHOLOGICAL FRACTURE Status: Chronic Priority: Low Current Visit: No Qualifiers: Presence of current pathological fracture: unspecified Qualified Code(s): M81.0 - Age-related osteoporosis without current pathological fracture (9) DJD (degenerative joint disease) SNOMED Code(s): 988896500 ICD Code: M19.90 - UNSPECIFIED OSTEOARTHRITIS, UNSPECIFIED SITE Status: Chronic Priority: Low Current Visit: No Qualifiers: Osteoarthritis location: unspecified site Osteoarthritis type: primary Qualified Code(s): M19.91 - Primary osteoarthritis, unspecified site (10) Anxiety SNOMED Code(s): 87621114 ICD Code: F41.9 - ANXIETY DISORDER, UNSPECIFIED Status: Chronic Priority : Low Current Visit: No (11) Other specified depressive episodes SNOMED Code(s): 96718356 ICD Code: F32.89 - OTHER SPECIFIED DEPRESSIVE EPISODES Status: Chronic Priority: Low Current Visit: No (12) Type II diabetes mellitus SNOMED Code(s): 24425903 ICD Code: E11.9 - TYPE 2 DIABETES MELLITUS WITHOUT COMPLICATIONS Status: Chronic Priority: Low Current Visit: Yes Qualifiers: Diabetes mellitus complication status: with unspecified complications Diabetes mellitus group home insulin use: without group home use Qualified Code( s): E11.8 - Type 2 diabetes mellitus with unspecified complications (13) Bronchitis SNOMED Code(s): 57809853 ICD Code: J40 - BRONCHITIS, NOT SPECIFIED ACUTE OR CHRONIC Status: Acute Priority: High Current Visit: Yes (14) Elevated troponin SNOMED Code(s): 419407223, 845165215 ICD Code: R74.8 - ABNORMAL LEVELS OF OTHER SERUM ENZYMES Status: Acute Priority: High Current Visit: Yes (15) Dehydration SNOMED Code(s): 34261143 ICD Code: E86.0 - DEHYDRATION Status: Acute Priority: High Current Visit: Yes Problem List Initiated/Reviewed/Updated: Yes Orders Last 24hrs: Medication Orders Diltiazem HCl 125 mg/ Sodium (Chloride) 125 mls @ 5 mls/hr IV TITRATE KARINA; 5 MG /HR PRN Reason: Protocol Last Titration: 08/31/17 14:19 Dose: 10 mg/hr, 10 mls/hr Titration: 08/31/17 13:29 Dose: 15 mg/hr, 15 mls/hr Titration: 08/31/17 13:29 Dose: 10 mg/hr, 10 mls/hr Admin: 08/31/17 12:43 Dose: 5 mg/hr, 5 mls/hr Sodium Chloride (Saline Flush) 10 ml FLUSH ASDIRECTED PRN PRN Reason: Keep Vein Open Last Admin: 08/31/17 10:17 Dose: 10 ml Assessment/Plan Comment:: I/P: Acute: A-fib with RVR -Hx/o a-fib but unsure if it is constant or proximal -HR in 120's in ED -12-lead shows A-fib with ST depression in V5 and V6 -ED gave diltiazem 10mg IVP x3 and started diltiazem drip -Continue diltiazem drip - titrate Elevated troponin -0.2-->0.364 in ED -0.434 on floor -CKMB 1.4 -Likely demand ischemia from above -Continue to trend Bronchitis -Reports fever, non-productive cough, weakness for several days -WBC 14.56, CRP 5.6 -CXR shows increased lung markings in right chest -Xopenex QID - no albuterol as HR is uncontrolled -RT/IS -Levaquin 750mg daily -Fluids as ordered -Repeat CXR in 24-48 hrs Atypical Chest pain -Chest pain 3/10 which comes and goes -"Worse when I cough" -Reproducible with palpation -Likely 2/2 above Elevated BNP -No reported history of CHF, No prior BNP in system -Echo in AM -On daily PO lasix -> increase to 40mg IVP in AM for now -Diuresis -Monitor kidney function -Salt restrictions Dehydration -Dry mucous membranes -Reports poor oral intake -Anion gap 18.3 -IV fluids as ordered -Caution with fluids due to elevated BNP - will need to diuresis after Chronic: HLD HTN DAVIE - CPAP/RT GERD - home PPI Arthritis OA Osteoporosis RA - home methotrexate Spinal stenosis DJD Anxiety Depression Type II DM - home meds, SS insulin, QID AC and Bed glucose checks Plan: Admit to ICU CM for discharge planning PT/OT Routine AM labs GI prophylaxis: Home PPI DVT/PE prophylaxis: BASIL hose and home Eliquis Other orders as indicated above Home medications as ordered Code Status: DNR/DNI; PCP: Dr. Rudd at [facility].
[2017-08-31] MEDS ORDERED: Docusate Sodium 100 MG Cap PO PRN (18:58)
[2017-08-31] MEDS ORDERED: Acetaminophen/HYDROcodone 325-5 MG Tab PO PRN (18:58)
[2017-08-31] MEDS ORDERED: Polyethylene Glycol 3350 Powder 17 GM Packet PO PRN (18:58)
[2017-08-31] MEDS ORDERED: Bisacodyl 5 MG Tab PO PRN (18:58)
[2017-08-31] MEDS ORDERED: Ondansetron 4 MG/2 ML SDV IV PRN (18:58)
[2017-08-31] MEDS ORDERED: Ondansetron 4 MG Tab.DIS PO PRN (18:58)
[2017-08-31] MEDS ORDERED: Cyclobenzaprine 10 MG Tab PO PRN (19:08)
[2017-08-31] MEDS ORDERED: Acetaminophen/Codeine 300-30 MG Tab PO PRN (19:08)
[2017-08-31] MEDS: Sodium Chloride 0.9% 1,000 ML IV SCH (19:48)
[2017-08-31] MEDS: Levofloxacin/Dextrose 5%-Water 750 MG in Premix Bag 1 BAG IV SCH (19:52)
[2017-08-31] MEDS: Acetaminophen 325 MG Tab PO PRN (20:18)
[2017-08-31] MEDS: Famotidine 20 MG Tab PO SCH (20:20)
[2017-08-31] MEDS: Amitriptyline 10 MG Tab PO SCH (20:20)
[2017-08-31] MEDS: Hydroxychloroquine 200 MG Tab PO SCH (20:20)
[2017-08-31] MEDS: Sertraline 50 MG Tab PO SCH (20:22)
[2017-08-31] MEDS: Cyclobenzaprine 10 MG Tab PO SCH (20:23)
[2017-08-31] MEDS ORDERED: 50% Dextrose in Water 50 ML Syringe IVPUSH PRN (20:41)
[2017-08-31] MEDS ORDERED: hydrALAZINE 20 MG/ML SDV IVPUSH PRN (20:44)
[2017-08-31] MEDS ORDERED: Non-Formulary Medication 1 Each (Dabigatran 150 MG) PO SCH (21:00)
[2017-08-31] MEDS: Levalbuterol HCl 1.25 MG/3 ML Neb NEB SCH (21:03)
[2017-08-31] MEDS: Insulin Aspart 100 Units/ML 3 ML Pen SUBCUT SCH (21:34)
[2017-08-31] MEDS: Benzonatate 100 MG Cap PO PRN (23:17)
[2017-09-01] MEDS: Levalbuterol HCl 1.25 MG/3 ML Neb NEB SCH ×4 (05:40→22:06)
[2017-09-01] MEDS: Sodium Chloride 0.9% 1,000 ML IV SCH (05:52)
[2017-09-01] MEDS: Insulin Aspart 100 Units/ML 3 ML Pen SUBCUT SCH ×4 (06:05→21:45)
[2017-09-01] MEDS: Pantoprazole 40 MG Tab.CR PO SCH (06:05)
[2017-09-01] MEDS: Acetaminophen 325 MG Tab PO PRN (06:10)
[2017-09-01] MEDS: Benzonatate 100 MG Cap PO PRN (07:37)
[2017-09-01] MEDS: BRIMONIDINE TART EYELF SCH ×3 (07:40→20:26)
[2017-09-01] MEDS: BRINZOLAMIDE EYELF SCH ×3 (07:40→20:26)
[2017-09-01] MEDS: Apixaban 5 MG Tab PO SCH (08:58)
[2017-09-01] MEDS: Multivitamins,Therapeutic Tab PO SCH (08:58)
[2017-09-01] MEDS: Folic Acid 1 MG Tab PO SCH (08:59)
[2017-09-01] MEDS: Famotidine 20 MG Tab PO SCH (08:59)
[2017-09-01] MEDS: Hydroxychloroquine 200 MG Tab PO SCH ×2 (08:59→20:26)
[2017-09-01] MEDS: Metoprolol Succinate 50 MG Tab.ER PO SCH (08:59)
[2017-09-01] MEDS: Calcium Carbonate/Vitamin D3 600 MG-200 Units Tab PO SCH (08:59)
[2017-09-01] MEDS: Potassium Chloride 10 MEQ Tab.ER PO SCH (08:59)
[2017-09-01] MEDS: Celecoxib 100 MG Cap PO SCH (08:59)
[2017-09-01] MEDS: Cholecalciferol (Vitamin D3) 1,000 Unit Tab PO SCH (08:59)
[2017-09-01] MEDS: Furosemide 40 MG/4 ML VIAL IVPUSH SCH (09:00)
[2017-09-01] MEDS: Losartan 100 MG Tab PO SCH (09:00)
[2017-09-01] MEDS: Vortioxetine Hydrobromide [Trintellix] 10 MG PO SCH (09:00)
[2017-09-01] MEDS ORDERED: Furosemide 20 MG Tab PO SCH (09:00)
[2017-09-01] MEDS ORDERED: Methotrexate 2.5 MG Tab PO SCH (09:00)
[2017-09-01] MEDS: Aspirin 81 MG Tab.Chew PO SCH (09:00)
[2017-09-01] MEDS: Canagliflozin [Invokana] 300 MG PO SCH (09:00)
[2017-09-01] MEDS: Cyclobenzaprine 10 MG Tab PO SCH ×2 (09:00→20:26)
[2017-09-01] MEDS: Diltiazem 125 MG in Sodium Chloride 0.9% 100 ML IV SCH ×2 (11:21→22:31)
[2017-09-01] MEDS ORDERED: Acetaminophen/Codeine 300-30 MG Tab PO PRN (16:31)
[2017-09-01] MEDS ORDERED: hydrALAZINE 20 MG/ML SDV IVPUSH PRN (16:31)
--- NOTE | 2017-09-01 16:37 | PCM.PN ---
- General Info Date of Service: 09/01/17 Functional Status: Reports: Tolerating Diet, Urinating - Review of Systems General: Reports: Weakness HEENT: Reports: No Symptoms Pulmonary: Reports: Shortness of Breath Cardiovascular: Reports: No Symptoms Gastrointestinal: Reports: No Symptoms Genitourinary: Reports: No Symptoms Musculoskeletal: Reports: No Symptoms Skin: Reports: No Symptoms Neurological: Reports: No Symptoms Psychiatric: Reports: No Symptoms - Patient Data Vitals - Most Recent: Last Vital Signs Temp 37.1 C 09/01/17 12:00 Pulse 88 09/01/17 15:00 Resp 18 09/01/17 12:00 BP 108/61 09/01/17 15:00 Pulse Ox 97 09/01/17 15:41 Weight - Most Recent: 75.931 kg I&O - Last 24 Hours: Intake & Output 09/01/17 09/01/17 09/01/17 06:59 14:59 22:59 Intake Total 1364 480 Output Total 600 400 Balance 764 80 Lab Results Last 24 Hours: Laboratory Results - last 24 hr 08/31/17 08/31/17 08/31/17 Range/Units 18:58 18:58 18:58 WBC (3.98-10.04) K/mm3 RBC (3.98-5.22) M/mm3 Hgb (11.2-15.7) gm/L Hct (34.1-44.9) % MCV (79.4-94.8) fl MCH (25.6-32.2) pg MCHC (32.2-35.5) g/dl RDW Std Deviation (36.4-46.3) fL Plt Count (182-369) K/mm3 MPV (9.4-12.3) fl Neut % (Auto) (34.0-71.1) % Lymph % (Auto) (19.3-51.7) % Rains % (Auto) (4.7-12.5) % Eos % (Auto) (0.7-5.8) Baso % (Auto) (0.1-1.2) % Neut # (Auto) (1.56-6.13) K/mm3 Lymph # (Auto) (1.18-3.74) K/mm3 Rains # (Auto) (0.24-0.36) K/mm3 Eos # (Auto) (0.04-0.36) K/mm3 Baso # (Auto) (0.01-0.08) K/mm3 Manual Slide Review Sodium (136-145) mEq/L Potassium (3.5-5.1) mEq/L Chloride (98-107) mEq/L Carbon Dioxide (21-32) mEq/L Anion Gap (5-15) BUN (7-18) mg/dL Creatinine (0.55-1.02) mg/dL Est Cr Clr Drug Dosing mL/min Estimated GFR (MDRD) (>60) mL/min BUN/Creatinine Ratio (14-18) Glucose (83-115) mg/dL POC Glucose (83-110) mg/dL Calcium (8.5-10.1) mg/dL Magnesium (1.8-2.4) mg/dl CK-MB (CK-2) 1.4 (0-3.6) ng/ml Troponin I 0.434 H* (0.00-0.056) ng/mL C-Reactive Protein 5.6 H* (<1.0) mg/dL NT-Pro-B Natriuret Pep (0-125) pg/mL Urine Color (Yellow) Urine Appearance (Clear) Urine pH (5.0-8.0) Ur Specific [place] (1.005-1.030) Urine Protein (Negative) Urine Glucose (UA) (Negative) Urine Ketones (Negative) Urine Occult Blood (Negative) Urine Nitrite (Negative) Urine Bilirubin (Negative) Urine Urobilinogen (0.2-1.0) Ur Leukocyte Esterase (Negative) Urine RBC (0-5) /hpf Urine WBC (0-5) /hpf Ur Epithelial Cells (0-5) /hpf Urine Bacteria (FEW) /hpf Urine Mucus (FEW) /hpf 08/31/17 08/31/17 09/01/17 Range/Units 21:05 21:25 05:18 WBC (3.98-10.04) K/mm3 RBC (3.98-5.22) M/mm3 Hgb (11.2-15.7) gm/L Hct (34.1-44.9) % MCV (79.4-94.8) fl MCH (25.6-32.2) pg MCHC (32.2-35.5) g/dl RDW Std Deviation (36.4-46.3) fL Plt Count (182-369) K/mm3 MPV (9.4-12.3) fl Neut % (Auto) (34.0-71.1) % Lymph % (Auto) (19.3-51.7) % Rains % (Auto) (4.7-12.5) % Eos % (Auto) (0.7-5.8) Baso % (Auto) (0.1-1.2) % Neut # (Auto) (1.56-6.13) K/mm3 Lymph # (Auto) (1.18-3.74) K/mm3 Rains # (Auto) (0.24-0.36) K/mm3 Eos # (Auto) (0.04-0.36) K/mm3 Baso # (Auto) (0.01-0.08) K/mm3 Manual Slide Review Sodium (136-145) mEq/L Potassium (3.5-5.1) mEq/L Chloride (98-107) mEq/L Carbon Dioxide (21-32) mEq/L Anion Gap (5-15) BUN (7-18) mg/dL Creatinine (0.55-1.02) mg/dL Est Cr Clr Drug Dosing mL/min Estimated GFR (MDRD) (>60) mL/min BUN/Creatinine Ratio (14-18) Glucose (83-115) mg/dL POC Glucose 154 H (83-110) mg/dL Calcium (8.5-10.1) mg/dL Magnesium (1.8-2.4) mg/dl CK-MB (CK-2) (0-3.6) ng/ml Troponin I (0.00-0.056) ng/mL C-Reactive Protein (<1.0) mg/dL NT-Pro-B Natriuret Pep 65810 H (0-125) pg/mL Urine Color Yellow (Yellow) Urine Appearance Clear (Clear) Urine pH 5.5 (5.0-8.0) Ur Specific [place] > or = 1.030 (1.005-1.030) Urine Protein 2+ H (Negative) Urine Glucose (UA) 2+ H (Negative) Urine Ketones Trace H (Negative) Urine Occult Blood Trace-lysed H (Negative) Urine Nitrite Negative (Negative) Urine Bilirubin Negative (Negative) Urine Urobilinogen 0.2 (0.2-1.0) Ur Leukocyte Esterase Negative (Negative) Urine RBC 0-5 (0-5) /hpf Urine WBC 5-10 H (0-5) /hpf Ur Epithelial Cells 5-10 H (0-5) /hpf Urine Bacteria Rare (FEW) /hpf Urine Mucus Not seen (FEW) /hpf 09/01/17 09/01/17 09/01/17 Range/Units 05:47 05:48 05:48 WBC 13.33 H (3.98-10.04) K/mm3 RBC 4.52 (3.98-5.22) M/mm3 Hgb 13.8 (11.2-15.7) gm/L Hct 42.9 (34.1-44.9) % MCV 94.9 H (79.4-94.8) fl MCH 30.5 (25.6-32.2) pg MCHC 32.2 (32.2-35.5) g/dl RDW Std Deviation 54.1 H (36.4-46.3) fL Plt Count 135 L (182-369) K/mm3 MPV 10.9 (9.4-12.3) fl Neut % (Auto) 80.3 H (34.0-71.1) % Lymph % (Auto) 12.6 L (19.3-51.7) % Rains % (Auto) 6.0 (4.7-12.5) % Eos % (Auto) 0.6 L (0.7-5.8) Baso % (Auto) 0.2 (0.1-1.2) % Neut # (Auto) 10.70 H (1.56-6.13) K/mm3 Lymph # (Auto) 1.68 (1.18-3.74) K/mm3 Rains # (Auto) 0.80 H (0.24-0.36) K/mm3 Eos # (Auto) 0.08 (0.04-0.36) K/mm3 Baso # (Auto) 0.03 (0.01-0.08) K/mm3 Manual Slide Review Normal smear Sodium 139 (136-145) mEq/L Potassium 3.7 (3.5-5.1) mEq/L Chloride 106 (98-107) mEq/L Carbon Dioxide 24 (21-32) mEq/L Anion Gap 12.7 (5-15) BUN 18 (7-18) mg/dL Creatinine 0.8 (0.55-1.02) mg/dL Est Cr Clr Drug Dosing 55.52 mL/min Estimated GFR (MDRD) > 60 (>60) mL/min BUN/Creatinine Ratio 22.5 H (14-18) Glucose 100 (83-115) mg/dL POC Glucose 99 (83-110) mg/dL Calcium 8.6 (8.5-10.1) mg/dL Magnesium 1.7 L (1.8-2.4) mg/dl CK-MB (CK-2) (0-3.6) ng/ml Troponin I 0.189 H* (0.00-0.056) ng/mL C-Reactive Protein 6.5 H* (<1.0) mg/dL NT-Pro-B Natriuret Pep (0-125) pg/mL Urine Color (Yellow) Urine Appearance (Clear) Urine pH (5.0-8.0) Ur Specific [place] (1.005-1.030) Urine Protein (Negative) Urine Glucose (UA) (Negative) Urine Ketones (Negative) Urine Occult Blood (Negative) Urine Nitrite (Negative) Urine Bilirubin (Negative) Urine Urobilinogen (0.2-1.0) Ur Leukocyte Esterase (Negative) Urine RBC (0-5) /hpf Urine WBC (0-5) /hpf Ur Epithelial Cells (0-5) /hpf Urine Bacteria (FEW) /hpf Urine Mucus (FEW) /hpf 09/01/17 Range/Units 11:51 WBC (3.98-10.04) K/mm3 RBC (3.98-5.22) M/mm3 Hgb (11.2-15.7) gm/L Hct (34.1-44.9) % MCV (79.4-94.8) fl MCH (25.6-32.2) pg MCHC (32.2-35.5) g/dl RDW Std Deviation (36.4-46.3) fL Plt Count (182-369) K/mm3 MPV (9.4-12.3) fl Neut % (Auto) (34.0-71.1) % Lymph % (Auto) (19.3-51.7) % Rains % (Auto) (4.7-12.5) % Eos % (Auto) (0.7-5.8) Baso % (Auto) (0.1-1.2) % Neut # (Auto) (1.56-6.13) K/mm3 Lymph # (Auto) (1.18-3.74) K/mm3 Rains # (Auto) (0.24-0.36) K/mm3 Eos # (Auto) (0.04-0.36) K/mm3 Baso # (Auto) (0.01-0.08) K/mm3 Manual Slide Review Sodium (136-145) mEq/L Potassium (3.5-5.1) mEq/L Chloride (98-107) mEq/L Carbon Dioxide (21-32) mEq/L Anion Gap (5-15) BUN (7-18) mg/dL Creatinine (0.55-1.02) mg/dL Est Cr Clr Drug Dosing mL/min Estimated GFR (MDRD) (>60) mL/min BUN/Creatinine Ratio (14-18) Glucose (83-115) mg/dL POC Glucose 102 (83-110) mg/dL Calcium (8.5-10.1) mg/dL Magnesium (1.8-2.4) mg/dl CK-MB (CK-2) (0-3.6) ng/ml Troponin I (0.00-0.056) ng/mL C-Reactive Protein (<1.0) mg/dL NT-Pro-B Natriuret Pep (0-125) pg/mL Urine Color (Yellow) Urine Appearance (Clear) Urine pH (5.0-8.0) Ur Specific [place] (1.005-1.030) Urine Protein (Negative) Urine Glucose (UA) (Negative) Urine Ketones (Negative) Urine Occult Blood (Negative) Urine Nitrite (Negative) Urine Bilirubin (Negative) Urine Urobilinogen (0.2-1.0) Ur Leukocyte Esterase (Negative) Urine RBC (0-5) /hpf Urine WBC (0-5) /hpf Ur Epithelial Cells (0-5) /hpf Urine Bacteria (FEW) /hpf Urine Mucus (FEW) /hpf Med Orders - Current: Current Medications Acetaminophen (Tylenol) 650 mg PO Q4H PRN PRN Reason: Pain (Mild 1-3)/fever Last Admin: 09/01/17 06:10 Dose: 650 mg Acetaminophen/Codeine Phosphate (Tylenol With Codeine No.3 300mg/30mg) 1 tab PO Q6H PRN PRN Reason: Pain Hydrocodone Bitart/Acetaminophen ([place] 325-5 Mg) 1 tab PO Q4H PRN PRN Reason: Pain (moderate 4-6) Amitriptyline HCl (Elavil) 10 mg PO BEDTIME [facility] Last Admin: 08/31/17 20:20 Dose: 10 mg Apixaban (Eliquis) 5 mg PO DAILY [facility] Last Admin: 09/01/17 08:58 Dose: 5 mg Aspirin (Aspirin) 81 mg PO DAILY [facility] Last Admin: 09/01/17 09:00 Dose: Not Given Benzonatate (Tessalon Perles) 100 mg PO TID PRN PRN Reason: Cough Last Admin: 09/01/17 07:37 Dose: 100 mg Bisacodyl (Dulcolax) 5 mg PO DAILY PRN PRN Reason: Constipation Calcium Carbonate (Calcium Carbonate/Vitamin D 600 Mg-200 Unit) 1 tab PO DAILY [facility] Last Admin: 09/01/17 08:59 Dose: 1 tab Celecoxib (Celebrex) 100 mg PO DAILY [facility] Last Admin: 09/01/17 08:59 Dose: 100 mg Cholecalciferol (Vitamin D3) 1,000 units PO DAILY [facility] Last Admin: 09/01/17 08:59 Dose: 1,000 units Cyclobenzaprine HCl (Flexeril) 10 mg PO BID [facility] Last Admin: 09/01/17 09:00 Dose: Not Given Dextrose/Water (Dextrose 50% In Water) 50 ml IVPUSH ASDIRECTED PRN PRN Reason: Hypoglycemia Docusate Sodium (Colace) 100 mg PO BID PRN PRN Reason: Constipation Folic Acid (Folic Acid) 1 mg PO DAILY [facility] Last Admin: 09/01/17 08:59 Dose: 1 mg Furosemide (Lasix) 40 mg IVPUSH DAILY [facility] Last Admin: 09/01/17 09:00 Dose: 40 mg Hydralazine HCl (Apresoline) 20 mg IVPUSH Q6H PRN PRN Reason: Hypertension Hydroxychloroquine Sulfate (Plaquenil) 200 mg PO BID [facility] Last Admin: 09/01/17 08:59 Dose: 200 mg Diltiazem HCl 125 mg/ Sodium (Chloride) 125 mls @ 5 mls/hr IV TITRATE KARINA; 5 MG /HR PRN Reason: Protocol Last Titration: 09/01/17 13:33 Dose: 10 mg/hr, 10 mls/hr Levofloxacin/Dextrose 750 mg/ (Premix) 150 mls @ 100 mls/hr IV Q24H [facility] Stop: 09/01/17 23:00 Last Admin: 08/31/17 19:52 Dose: 100 mls/hr Sodium Chloride (Normal Saline) 1,000 mls @ 75 mls/hr IV ASDIRECTED [facility] Stop: 09/02/17 08:34 Last Admin: 09/01/17 05:52 Dose: 100 mls/hr Insulin Aspart (Novolog) 0 unit SUBCUT QIDACANDBED [facility] PRN Reason: Protocol Last Admin: 09/01/17 11:52 Dose: Not Given Levalbuterol HCl (Xopenex) 1.25 mg NEB QIDRT [facility] Last Admin: 09/01/17 15:39 Dose: 1.25 mg Levofloxacin (Levaquin) 750 mg PO Q24H [facility] Losartan Potassium (Cozaar) 150 mg PO DAILY [facility] Last Admin: 09/01/17 09:00 Dose: 150 mg Methotrexate (Methotrexate) 15 mg PO Fr@0900 [facility] Last Admin: 09/01/17 09:02 Dose: 15 mg Metoprolol Succinate (Toprol Xl) 100 mg PO DAILY [facility] Last Admin: 09/01/17 08:59 Dose: 100 mg Multivitamins (Thera) 1 each PO DAILY [facility] Last Admin: 09/01/17 08:58 Dose: 1 each Ondansetron HCl (Zofran Odt) 4 mg PO Q6H PRN PRN Reason: nausea, able to take PO Ondansetron HCl (Zofran) 4 mg IV Q6H PRN PRN Reason: Nausea/Vomiting Pantoprazole Sodium (Protonix) 40 mg PO DAILY@0700 [facility] Last Admin: 09/01/17 06:05 Dose: 40 mg Brinzolamide/Brimonidine Tart [ Simbrinza 1%-0.2% Eye Drop 0 each EYELF BID [facility] Last Admin: 09/01/17 09:01 Dose: Not Given Canagliflozin [ (Invokana] 300 Mg) 0 each PO DAILY [facility] Last Admin: 09/01/17 09:00 Dose: Not Given Vortioxetine Hydrobromide [ Trintellix] 10 Mg 0 each PO DAILY [facility] Last Admin: 09/01/17 09:00 Dose: Not Given Polyethylene Glycol (Miralax) 17 gm PO DAILY PRN PRN Reason: Constipation Potassium Chloride (Klor-Con 10) 10 meq PO DAILY [facility] Last Admin: 09/01/17 08:59 Dose: 10 meq Senna/Docusate Sodium (Senna Plus) 1 tab PO BID PRN PRN Reason: Constipation Sertraline HCl (Zoloft) 50 mg PO BEDTIME [facility] Last Admin: 08/31/17 20:22 Dose: 50 mg Sodium Chloride (Saline Flush) 10 ml FLUSH ASDIRECTED PRN PRN Reason: Keep Vein Open Last Admin: 08/31/17 10:17 Dose: 10 ml Discontinued Medications Acetaminophen/Codeine Phosphate (Tylenol With Codeine No.3 300mg/30mg) 1 tab PO Q4H PRN PRN Reason: Pain Cyclobenzaprine HCl (Flexeril) 10 mg PO DAILY PRN PRN Reason: Pain Diltiazem HCl (Diltiazem) 10 mg IVPUSH ONETIME ONE Stop: 08/31/17 10:09 Last Admin: 08/31/17 10:17 Dose: 10 mg Diltiazem HCl (Diltiazem) 10 mg IVPUSH ONETIME ONE Stop: 08/31/17 10:58 Last Admin: 08/31/17 11:03 Dose: 10 mg Diltiazem HCl (Diltiazem) 10 mg IVPUSH ONETIME ONE Stop: 08/31/17 12:25 Last Admin: 08/31/17 12:39 Dose: 10 mg Famotidine (Pepcid) 20 mg PO BID [facility] Last Admin: 09/01/17 08:59 Dose: 20 mg Furosemide (Lasix) 20 mg PO DAILY [facility] Hydralazine HCl (Apresoline) 10 mg IVPUSH Q6H PRN PRN Reason: Hypertension Metoclopramide HCl (Reglan) 5 mg IVPUSH ONETIME ONE Stop: 08/31/17 10:06 Last Admin: 08/31/17 10:17 Dose: 5 mg Non-Formulary Medication (Dabigatran) 150 mg PO BID KARINA - Exam Quality Assessment: Supplemental Oxygen, DVT Prophylaxis General: Alert, Oriented, Cooperative, No Acute Distress HEENT: Pupils Equal, Pupils Reactive, EOMI Neck: Supple, Trachea Midline, No JVD Lungs: Normal Respiratory Effort, Decreased Breath Sounds Cardiovascular: Regular Rate, Irregular Rhythm GI/Abdominal Exam: Normal Bowel Sounds, Soft, Non-Tender, No Organomegaly, No Distention (Female) Exam: Deferred Back Exam: Normal Inspection Extremities: Normal Inspection, Normal Capillary Refill Skin: Warm Neurological: No New Focal Deficit, Normal Speech Psy/Mental Status: Alert, Normal Affect, Normal Mood - Problem List Review Problem List Initiated/Reviewed/Updated: Yes - My Orders Last 24 Hours: My Active Orders 08/31/17 Dinner Heart Healthy Diet [DIET] 09/01/17 16:31 Acetaminophen/Codeine [Tylenol with Codeine No.3 300MG/30MG] 1 tab PO Q6H PRN hydrALAZINE [Apresoline] 20 mg IVPUSH Q6H PRN 09/02/17 19:00 Levofloxacin [Levaquin] 750 mg PO Q24H - Plan Plan:: I/P: Acute: A-fib with RVR -Hx/o a-fib but unsure if it is constant or proximal -HR in 120's in ED-->improved, will adjust oral meds using short acting for now. -12-lead shows A-fib with ST depression in V5 and V6 -ED gave diltiazem 10mg IVP x3 and started diltiazem drip -Continue diltiazem drip - titrate Elevated troponin -0.2-->0.364 in ED-->demand ischemia -0.434 on floor -CKMB 1.4 -Likely demand ischemia from above -Continue to trend Bronchitis will maintain empiric PNA coverage for now -Reports fever, non-productive cough, weakness for several days -WBC 14.56, CRP 5.6 -CXR shows increased lung markings in right chest -Xopenex QID - no albuterol as HR is uncontrolled -RT/IS -Levaquin 750mg daily -Fluids as ordered -Repeat CXR in 24-48 hrs; ordered 09/02/17 Atypical Chest pain -Chest pain 3/10 which comes and goes -"Worse when I cough"-->pleuritic, thus far negative resp work up. -Reproducible with palpation -Likely 2/2 above Elevated BNP -No reported history of CHF, No prior BNP in system -Echo in AM-->cancelled, recent 2D echo, less than 3 months ago -On daily PO lasix -> increase to 40mg IVP in AM for now -Diuresis -Monitor kidney function -Salt restrictions Dehydration -Dry mucous membranes -Reports poor oral intake -Anion gap 18.3 -IV fluids as ordered -Caution with fluids due to elevated BNP - will need to diuresis after Chronic: HLD HTN DAVIE - CPAP/RT GERD - home PPI Arthritis OA Osteoporosis RA - home methotrexate Spinal stenosis DJD Anxiety Depression Type II DM - home meds, SS insulin, QID AC and Bed glucose checks Plan: CM for discharge planning PT/OT Routine AM labs GI prophylaxis: Home PPI DVT/PE prophylaxis: BASIL hose and home Eliquis Other orders as indicated above Home medications as ordered Code Status: DNR/DNI; PCP: Dr[facility] Rudd at [facility].
[2017-09-01] MEDS: Levofloxacin/Dextrose 5%-Water 750 MG in Premix Bag 1 BAG IV SCH (18:14)
[2017-09-01] MEDS: Metoprolol Tartrate 50 MG Tab PO SCH (18:14)
[2017-09-01] MEDS: Amitriptyline 10 MG Tab PO SCH (20:26)
[2017-09-01] MEDS: Sertraline 50 MG Tab PO SCH (20:26)
[2017-09-01] MEDS: Temazepam 15 MG Cap PO PRN (22:31)
[2017-09-02] MEDS: Metoprolol Tartrate 50 MG Tab PO SCH ×3 (03:14→18:43)
[2017-09-02] MEDS: Pantoprazole 40 MG Tab.CR PO SCH (06:19)
[2017-09-02] MEDS: Insulin Aspart 100 Units/ML 3 ML Pen SUBCUT SCH ×4 (06:19→21:20)
[2017-09-02] MEDS: Levalbuterol HCl 1.25 MG/3 ML Neb NEB SCH ×3 (06:36→16:20)
[2017-09-02] MEDS: Celecoxib 100 MG Cap PO SCH (10:15)
[2017-09-02] MEDS: Folic Acid 1 MG Tab PO SCH (10:15)
[2017-09-02] MEDS: Multivitamins,Therapeutic Tab PO SCH (10:15)
[2017-09-02] MEDS: Aspirin 81 MG Tab.Chew PO SCH (10:16)
[2017-09-02] MEDS: Apixaban 5 MG Tab PO SCH ×2 (10:16→21:18)
[2017-09-02] MEDS: Calcium Carbonate/Vitamin D3 600 MG-200 Units Tab PO SCH (10:16)
[2017-09-02] MEDS: Potassium Chloride 10 MEQ Tab.ER PO SCH (10:16)
[2017-09-02] MEDS: Furosemide 40 MG/4 ML VIAL IVPUSH SCH (10:16)
[2017-09-02] MEDS: Cholecalciferol (Vitamin D3) 1,000 Unit Tab PO SCH (10:16)
[2017-09-02] MEDS: Hydroxychloroquine 200 MG Tab PO SCH ×2 (10:16→21:19)
[2017-09-02] MEDS: BRIMONIDINE TART EYELF SCH ×2 (10:17→21:20)
[2017-09-02] MEDS: Canagliflozin [Invokana] 300 MG PO SCH (10:17)
[2017-09-02] MEDS: Cyclobenzaprine 10 MG Tab PO SCH ×2 (10:17→21:19)
[2017-09-02] MEDS: BRINZOLAMIDE EYELF SCH ×2 (10:17→21:20)
[2017-09-02] MEDS: Vortioxetine Hydrobromide [Trintellix] 10 MG PO SCH (10:18)
[2017-09-02] MEDS ORDERED: Levalbuterol HCl 1.25 MG/3 ML Neb NEB PRN (17:09)
--- NOTE | 2017-09-02 17:14 | PCM.PN ---
- General Info Date of Service: 09/02/17 Functional Status: Reports: Pain Controlled, Ambulating, Urinating - Review of Systems General: Reports: No Symptoms HEENT: Reports: No Symptoms Pulmonary: Reports: No Symptoms Cardiovascular: Reports: No Symptoms Gastrointestinal: Reports: No Symptoms Genitourinary: Reports: No Symptoms Musculoskeletal: Reports: No Symptoms Skin: Reports: No Symptoms Neurological: Reports: No Symptoms Psychiatric: Reports: No Symptoms - Patient Data Vitals - Most Recent: Last Vital Signs Temp 36.4 C 09/02/17 16:00 Pulse 91 09/02/17 16:00 Resp 16 09/02/17 16:00 BP 130/59 L 09/02/17 16:00 Pulse Ox 97 09/02/17 16:22 Weight - Most Recent: 76.657 kg I&O - Last 24 Hours: Intake & Output 09/02/17 09/02/17 09/02/17 06:59 14:59 22:59 Intake Total 232 620 564 Output Total 500 1700 600 Balance -168 -1502 -36 Lab Results Last 24 Hours: Laboratory Results - last 24 hr 09/01/17 09/02/17 09/02/17 Range/Units 17:32 05:32 05:35 WBC 7.14 (3.98-10.04) K/mm3 RBC 4.18 (3.98-5.22) M/mm3 Hgb 12.8 (11.2-15.7) gm/L Hct 39.7 (34.1-44.9) % MCV 95.0 H (79.4-94.8) fl MCH 30.6 (25.6-32.2) pg MCHC 32.2 (32.2-35.5) g/dl RDW Std Deviation 52.9 H (36.4-46.3) fL Plt Count 125 L (182-369) K/mm3 MPV 10.5 (9.4-12.3) fl Neut % (Auto) 68.2 (34.0-71.1) % Lymph % (Auto) 21.4 (19.3-51.7) % [place] % (Auto) 8.3 (4.7-12.5) % Eos % (Auto) 1.5 (0.7-5.8) Baso % (Auto) 0.3 (0.1-1.2) % Neut # (Auto) 4.87 (1.56-6.13) K/mm3 Lymph # (Auto) 1.53 (1.18-3.74) K/mm3 [place] # (Auto) 0.59 H (0.24-0.36) K/mm3 Eos # (Auto) 0.11 (0.04-0.36) K/mm3 Baso # (Auto) 0.02 (0.01-0.08) K/mm3 Sodium (136-145) mEq/L Potassium (3.5-5.1) mEq/L Chloride (98-107) mEq/L Carbon Dioxide (21-32) mEq/L Anion Gap (5-15) BUN (7-18) mg/dL Creatinine (0.55-1.02) mg/dL Est Cr Clr Drug Dosing mL/min Estimated GFR (MDRD) (>60) mL/min BUN/Creatinine Ratio (14-18) Glucose (83-115) mg/dL POC Glucose 92 100 (83-110) mg/dL Calcium (8.5-10.1) mg/dL Magnesium (1.8-2.4) mg/dl C-Reactive Protein (<1.0) mg/dL NT-Pro-B Natriuret Pep (0-125) pg/mL 09/02/17 09/02/17 09/02/17 Range/Units 05:35 05:35 11:48 WBC (3.98-10.04) K/mm3 RBC (3.98-5.22) M/mm3 Hgb (11.2-15.7) gm/L Hct (34.1-44.9) % MCV (79.4-94.8) fl MCH (25.6-32.2) pg MCHC (32.2-35.5) g/dl RDW Std Deviation (36.4-46.3) fL Plt Count (182-369) K/mm3 MPV (9.4-12.3) fl Neut % (Auto) (34.0-71.1) % Lymph % (Auto) (19.3-51.7) % [place] % (Auto) (4.7-12.5) % Eos % (Auto) (0.7-5.8) Baso % (Auto) (0.1-1.2) % Neut # (Auto) (1.56-6.13) K/mm3 Lymph # (Auto) (1.18-3.74) K/mm3 [place] # (Auto) (0.24-0.36) K/mm3 Eos # (Auto) (0.04-0.36) K/mm3 Baso # (Auto) (0.01-0.08) K/mm3 Sodium 141 (136-145) mEq/L Potassium 4.1 (3.5-5.1) mEq/L Chloride 108 H (98-107) mEq/L Carbon Dioxide 25 (21-32) mEq/L Anion Gap 12.1 (5-15) BUN 16 (7-18) mg/dL Creatinine 0.7 (0.55-1.02) mg/dL Est Cr Clr Drug Dosing 63.45 mL/min Estimated GFR (MDRD) > 60 (>60) mL/min BUN/Creatinine Ratio 22.9 H (14-18) Glucose 102 (83-115) mg/dL POC Glucose 124 H (83-110) mg/dL Calcium 8.6 (8.5-10.1) mg/dL Magnesium 1.8 (1.8-2.4) mg/dl C-Reactive Protein 9.6 H* (<1.0) mg/dL NT-Pro-B Natriuret Pep 6448 H (0-125) pg/mL Juan Results Last 24 Hours: Microbiology 08/31/17 18:57 Respiratory Virus Panel (PCR) (JUAN) - Final Nasopharyngeal Swab - Nare, Unspecified 08/31/17 21:25 Streptococcus pneumoniae Antigen (M - Final Urine Med Orders - Current: Current Medications Acetaminophen (Tylenol) 650 mg PO Q4H PRN PRN Reason: Pain (Mild 1-3)/fever Last Admin: 09/01/17 06:10 Dose: 650 mg Acetaminophen/Codeine Phosphate (Tylenol With Codeine No.3 300mg/30mg) 1 tab PO Q6H PRN PRN Reason: Pain Hydrocodone Bitart/Acetaminophen ([place] 325-5 Mg) 1 tab PO Q4H PRN PRN Reason: Pain (moderate 4-6) Amitriptyline HCl (Elavil) 10 mg PO BEDTIME KARINA Last Admin: 09/01/17 20:26 Dose: Not Given Aspirin (Aspirin) 81 mg PO DAILY [facility] Last Admin: 09/02/17 10:16 Dose: Not Given Benzonatate (Tessalon Perles) 100 mg PO TID PRN PRN Reason: Cough Last Admin: 09/01/17 07:37 Dose: 100 mg Bisacodyl (Dulcolax) 5 mg PO DAILY PRN PRN Reason: Constipation Calcium Carbonate (Calcium Carbonate/Vitamin D 600 Mg-200 Unit) 1 tab PO DAILY [facility] Last Admin: 09/02/17 10:16 Dose: 1 tab Celecoxib (Celebrex) 100 mg PO DAILY [facility] Last Admin: 09/02/17 10:15 Dose: 100 mg Cholecalciferol (Vitamin D3) 1,000 units PO DAILY [facility] Last Admin: 09/02/17 10:16 Dose: 1,000 units Cyclobenzaprine HCl (Flexeril) 10 mg PO BID [facility] Last Admin: 09/02/17 10:17 Dose: Not Given Dextrose/Water (Dextrose 50% In Water) 50 ml IVPUSH ASDIRECTED PRN PRN Reason: Hypoglycemia Docusate Sodium (Colace) 100 mg PO BID PRN PRN Reason: Constipation Folic Acid (Folic Acid) 1 mg PO DAILY [facility] Last Admin: 09/02/17 10:15 Dose: 1 mg Furosemide (Lasix) 40 mg IVPUSH DAILY [facility] Last Admin: 09/02/17 10:16 Dose: 40 mg Hydralazine HCl (Apresoline) 20 mg IVPUSH Q6H PRN PRN Reason: Hypertension Hydroxychloroquine Sulfate (Plaquenil) 200 mg PO BID [facility] Last Admin: 09/02/17 10:16 Dose: 200 mg Insulin Aspart (Novolog) 0 unit SUBCUT QIDACANDBED [facility] PRN Reason: Protocol Last Admin: 09/02/17 12:17 Dose: Not Given Levalbuterol HCl (Xopenex) 1.25 mg NEB QIDRT PRN PRN Reason: Shortness of Breath Levofloxacin (Levaquin) 750 mg PO Q24H [facility] Losartan Potassium (Cozaar) 150 mg PO DAILY [facility] Last Admin: 09/01/17 09:00 Dose: 150 mg Methotrexate (Methotrexate) 15 mg PO Fr@0900 [facility] Last Admin: 09/01/17 09:02 Dose: 15 mg Metoprolol Succinate (Toprol Xl) 100 mg PO DAILY [facility] Last Admin: 09/01/17 08:59 Dose: 100 mg Metoprolol Tartrate (Lopressor) 50 mg PO Q8H [facility] Last Admin: 09/02/17 10:16 Dose: 50 mg Multivitamins (Thera) 1 each PO DAILY [facility] Last Admin: 09/02/17 10:15 Dose: 1 each Ondansetron HCl (Zofran Odt) 4 mg PO Q6H PRN PRN Reason: nausea, able to take PO Ondansetron HCl (Zofran) 4 mg IV Q6H PRN PRN Reason: Nausea/Vomiting Pantoprazole Sodium (Protonix) 40 mg PO DAILY@0700 [facility] Last Admin: 09/02/17 06:19 Dose: 40 mg Brinzolamide/Brimonidine Tart [ Simbrinza 1%-0.2% Eye Drop 0 each EYELF BID [facility] Last Admin: 09/02/17 10:17 Dose: Not Given Canagliflozin [ (Invokana] 300 Mg) 0 each PO DAILY [facility] Last Admin: 09/02/17 10:17 Dose: 1 each Vortioxetine Hydrobromide [ Trintellix] 10 Mg 0 each PO DAILY [facility] Last Admin: 09/02/17 10:18 Dose: Not Given Polyethylene Glycol (Miralax) 17 gm PO DAILY PRN PRN Reason: Constipation Potassium Chloride (Klor-Con 10) 10 meq PO DAILY [facility] Last Admin: 09/02/17 10:16 Dose: 10 meq Senna/Docusate Sodium (Senna Plus) 1 tab PO BID PRN PRN Reason: Constipation Sertraline HCl (Zoloft) 50 mg PO BEDTIME [facility] Last Admin: 09/01/17 20:26 Dose: 50 mg Sodium Chloride (Saline Flush) 10 ml FLUSH ASDIRECTED PRN PRN Reason: Keep Vein Open Last Admin: 08/31/17 10:17 Dose: 10 ml Temazepam (Restoril) 15 mg PO BEDTIME PRN PRN Reason: Sleep Last Admin: 09/01/17 22:31 Dose: 15 mg Discontinued Medications Acetaminophen/Codeine Phosphate (Tylenol With Codeine No.3 300mg/30mg) 1 tab PO Q4H PRN PRN Reason: Pain Apixaban (Eliquis) 5 mg PO DAILY [facility] Last Admin: 09/02/17 10:16 Dose: 5 mg Cyclobenzaprine HCl (Flexeril) 10 mg PO DAILY PRN PRN Reason: Pain Diltiazem HCl (Diltiazem) 10 mg IVPUSH ONETIME ONE Stop: 08/31/17 10:09 Last Admin: 08/31/17 10:17 Dose: 10 mg Diltiazem HCl (Diltiazem) 10 mg IVPUSH ONETIME ONE Stop: 08/31/17 10:58 Last Admin: 08/31/17 11:03 Dose: 10 mg Diltiazem HCl (Diltiazem) 10 mg IVPUSH ONETIME ONE Stop: 08/31/17 12:25 Last Admin: 08/31/17 12:39 Dose: 10 mg Famotidine (Pepcid) 20 mg PO BID [facility] Last Admin: 09/01/17 08:59 Dose: 20 mg Furosemide (Lasix) 20 mg PO DAILY [facility] Hydralazine HCl (Apresoline) 10 mg IVPUSH Q6H PRN PRN Reason: Hypertension Diltiazem HCl 125 mg/ Sodium (Chloride) 125 mls @ 5 mls/hr IV TITRATE KARINA; 5 MG /HR PRN Reason: Protocol Last Titration: 09/02/17 14:24 Dose: 0 mg/hr, 0 mls/hr Levofloxacin/Dextrose 750 mg/ (Premix) 150 mls @ 100 mls/hr IV Q24H [facility] Stop: 09/01/17 23:00 Last Admin: 09/01/17 18:14 Dose: 100 mls/hr Sodium Chloride (Normal Saline) 1,000 mls @ 75 mls/hr IV ASDIRECTED [facility] Stop: 09/02/17 08:34 Last Admin: 09/01/17 05:52 Dose: 100 mls/hr Levalbuterol HCl (Xopenex) 1.25 mg NEB QIDRT [facility] Last Admin: 09/02/17 16:20 Dose: 1.25 mg Metoclopramide HCl (Reglan) 5 mg IVPUSH ONETIME ONE Stop: 08/31/17 10:06 Last Admin: 08/31/17 10:17 Dose: 5 mg Non-Formulary Medication (Dabigatran) 150 mg PO BID KARINA - Exam Quality Assessment: DVT Prophylaxis General: Alert, Oriented, Cooperative, No Acute Distress HEENT: Pupils Equal, Pupils Reactive, EOMI Neck: Supple, Trachea Midline, No JVD Lungs: Normal Respiratory Effort, Decreased Breath Sounds Cardiovascular: Regular Rate, Irregular Rhythm GI/Abdominal Exam: Normal Bowel Sounds, Soft, Non-Tender, No Organomegaly, No Distention (Female) Exam: Deferred Back Exam: Normal Inspection Extremities: Normal Inspection Skin: Warm Neurological: No New Focal Deficit Psy/Mental Status: Alert, Normal Affect, Normal Mood - Problem List Review Problem List Initiated/Reviewed/Updated: Yes - My Orders Last 24 Hours: My Active Orders 09/01/17 16:31 Acetaminophen/Codeine [Tylenol with Codeine No.3 300MG/30MG] 1 tab PO Q6H PRN hydrALAZINE [Apresoline] 20 mg IVPUSH Q6H PRN 09/01/17 18:30 Metoprolol Tartrate [Lopressor] 50 mg PO Q8H 09/01/17 22:23 Temazepam [Restoril] 15 mg PO BEDTIME PRN 09/02/17 16:48 Admission Status [Patient Status] [ADT] Routine 09/02/17 17:09 Levalbuterol HCl [Xopenex] 1.25 mg NEB QIDRT PRN 09/02/17 19:00 Levofloxacin [Levaquin] 750 mg PO Q24H 09/02/17 21:00 Apixaban [Eliquis] 5 mg PO BID - Plan Plan:: I/P: Acute: A-fib with RVR -Hx/o a-fib but unsure if it is constant or proximal -HR in 120's in ED-->improved, will adjust oral meds using short acting for now. -12-lead shows A-fib with ST depression in V5 and V6 -ED gave diltiazem 10mg IVP x3 and started diltiazem drip -Continue diltiazem drip - titrate--stopped; increase BB as tolerated. Elevated troponin -0.2-->0.364 in ED-->demand ischemia -0.434 on floor -CKMB 1.4 -Likely demand ischemia from above -Continue to trend Bronchitis will maintain empiric PNA coverage for now -Reports fever, non-productive cough, weakness for several days -WBC 14.56, CRP 5.6 -CXR shows increased lung markings in right chest -Xopenex QID - no albuterol as HR is uncontrolled -RT/IS -Levaquin 750mg daily -Fluids as ordered -Repeat CXR in 24-48 hrs; ordered 09/02/17 Atypical Chest pain -Chest pain 09/02 which comes and goes -"Worse when I cough"-->pleuritic, thus far negative resp work up. -Reproducible with palpation -Likely 2/2 above Elevated BNP -No reported history of CHF, No prior BNP in system -Echo in AM-->cancelled, recent 2D echo, less than 3 months ago -On daily PO lasix -> increase to 40mg IVP in AM for now -Diuresis -Monitor kidney function -Salt restrictions Dehydration -Dry mucous membranes -Reports poor oral intake -Anion gap 18.3 -IV fluids as ordered -Caution with fluids due to elevated BNP - will need to diuresis after Chronic: HLD HTN DAVIE - CPAP/RT GERD - home PPI Arthritis OA Osteoporosis RA - home methotrexate Spinal stenosis DJD Anxiety Depression Type II DM - home meds, SS insulin, QID AC and Bed glucose checks Plan: CM for discharge planning PT/OT Routine AM labs GI prophylaxis: Home PPI DVT/PE prophylaxis: BASIL hose and home Eliquis Other orders as indicated above Home medications as ordered Code Status: DNR/DNI; PCP: Dr. Rudd at [facility].
[2017-09-02] MEDS: Levofloxacin 750 MG Tab PO SCH (18:43)
[2017-09-02] MEDS: Amitriptyline 10 MG Tab PO SCH (21:19)
[2017-09-02] MEDS: Sertraline 50 MG Tab PO SCH (21:19)
[2017-09-02] MEDS: Temazepam 15 MG Cap PO PRN (21:20)
[2017-09-03] MEDS: Metoprolol Tartrate 50 MG Tab PO SCH ×3 (04:07→18:42)
[2017-09-03] MEDS: Pantoprazole 40 MG Tab.CR PO SCH (06:06)
[2017-09-03] MEDS: Insulin Aspart 100 Units/ML 3 ML Pen SUBCUT SCH ×4 (06:06→23:13)
[2017-09-03] MEDS: Folic Acid 1 MG Tab PO SCH (09:46)
[2017-09-03] MEDS: Apixaban 5 MG Tab PO SCH ×2 (09:46→21:49)
[2017-09-03] MEDS: Cyclobenzaprine 10 MG Tab PO SCH ×3 (09:46→21:52)
[2017-09-03] MEDS: Celecoxib 100 MG Cap PO SCH (09:46)
[2017-09-03] MEDS: Cholecalciferol (Vitamin D3) 1,000 Unit Tab PO SCH (09:46)
[2017-09-03] MEDS: Furosemide 40 MG/4 ML VIAL IVPUSH SCH (09:48)
[2017-09-03] MEDS: Calcium Carbonate/Vitamin D3 600 MG-200 Units Tab PO SCH (09:48)
[2017-09-03] MEDS: Multivitamins,Therapeutic Tab PO SCH (09:48)
[2017-09-03] MEDS: Potassium Chloride 10 MEQ Tab.ER PO SCH (09:48)
[2017-09-03] MEDS: Aspirin 81 MG Tab.Chew PO SCH ×2 (09:48→09:54)
[2017-09-03] MEDS: BRINZOLAMIDE EYELF SCH ×2 (09:49→21:53)
[2017-09-03] MEDS: BRIMONIDINE TART EYELF SCH ×2 (09:49→21:53)
[2017-09-03] MEDS: Hydroxychloroquine 200 MG Tab PO SCH ×2 (09:49→21:50)
[2017-09-03] MEDS: Vortioxetine Hydrobromide [Trintellix] 10 MG PO SCH (09:51)
[2017-09-03] MEDS: Canagliflozin [Invokana] 300 MG PO SCH (09:51)
[2017-09-03] MEDS ORDERED: Potassium Chloride 10% 20 MEQ/15 ML Soln 30 ML UD Cup PO ONE (15:52)
[2017-09-03] MEDS ORDERED: Furosemide 40 MG/4 ML VIAL IVPUSH ONE (15:52)
[2017-09-03] MEDS ORDERED: Magnesium Sulfate/Water 2 GM in Premix Bag 1 BAG IV ONE (15:53)
--- NOTE | 2017-09-03 15:57 | PCM.PN ---
- General Info Date of Service: 09/03/17 Functional Status: Reports: Tolerating Diet, Ambulating, Urinating - Review of Systems General: Reports: No Symptoms HEENT: Reports: No Symptoms Pulmonary: Reports: No Symptoms Cardiovascular: Reports: No Symptoms Gastrointestinal: Reports: No Symptoms Genitourinary: Reports: No Symptoms Musculoskeletal: Reports: No Symptoms Skin: Reports: No Symptoms Neurological: Reports: No Symptoms Psychiatric: Reports: No Symptoms - Patient Data Vitals - Most Recent: Last Vital Signs Temp 36.3 C 09/03/17 08:30 Pulse 45 L 09/03/17 14:48 Resp 20 09/03/17 08:30 BP 111/66 09/03/17 14:48 Pulse Ox 96 09/03/17 14:48 Weight - Most Recent: 75.16 kg I&O - Last 24 Hours: Intake & Output 09/03/17 09/03/17 09/03/17 06:59 14:59 22:59 Intake Total 120 500 Balance 120 500 Lab Results Last 24 Hours: Laboratory Results - last 24 hr 09/02/17 09/02/17 09/03/17 Range/Units 17:13 20:11 05:47 WBC 7.37 (3.98-10.04) K/mm3 RBC 4.38 (3.98-5.22) M/mm3 Hgb 13.3 (11.2-15.7) gm/L Hct 41.2 (34.1-44.9) % MCV 94.1 (79.4-94.8) fl MCH 30.4 (25.6-32.2) pg MCHC 32.3 (32.2-35.5) g/dl RDW Std Deviation 52.6 H (36.4-46.3) fL Plt Count 142 L (182-369) K/mm3 MPV 10.9 (9.4-12.3) fl Neut % (Auto) 65.5 (34.0-71.1) % Lymph % (Auto) 25.6 (19.3-51.7) % Hodgeman % (Auto) 6.5 (4.7-12.5) % Eos % (Auto) 2.0 (0.7-5.8) Baso % (Auto) 0.1 (0.1-1.2) % Neut # (Auto) 4.82 (1.56-6.13) K/mm3 Lymph # (Auto) 1.89 (1.18-3.74) K/mm3 Hodgeman # (Auto) 0.48 H (0.24-0.36) K/mm3 Eos # (Auto) 0.15 (0.04-0.36) K/mm3 Baso # (Auto) 0.01 (0.01-0.08) K/mm3 Manual Slide Review Normal smear Sodium (136-145) mEq/L Potassium (3.5-5.1) mEq/L Chloride (98-107) mEq/L Carbon Dioxide (21-32) mEq/L Anion Gap (5-15) BUN (7-18) mg/dL Creatinine (0.55-1.02) mg/dL Est Cr Clr Drug Dosing mL/min Estimated GFR (MDRD) (>60) mL/min BUN/Creatinine Ratio (14-18) Glucose (83-115) mg/dL POC Glucose 124 H 151 H (83-110) mg/dL Calcium (8.5-10.1) mg/dL Magnesium (1.8-2.4) mg/dl C-Reactive Protein (<1.0) mg/dL NT-Pro-B Natriuret Pep (0-125) pg/mL 09/03/17 09/03/17 09/03/17 Range/Units 05:47 05:47 05:54 WBC (3.98-10.04) K/mm3 RBC (3.98-5.22) M/mm3 Hgb (11.2-15.7) gm/L Hct (34.1-44.9) % MCV (79.4-94.8) fl MCH (25.6-32.2) pg MCHC (32.2-35.5) g/dl RDW Std Deviation (36.4-46.3) fL Plt Count (182-369) K/mm3 MPV (9.4-12.3) fl Neut % (Auto) (34.0-71.1) % Lymph % (Auto) (19.3-51.7) % Hodgeman % (Auto) (4.7-12.5) % Eos % (Auto) (0.7-5.8) Baso % (Auto) (0.1-1.2) % Neut # (Auto) (1.56-6.13) K/mm3 Lymph # (Auto) (1.18-3.74) K/mm3 Hodgeman # (Auto) (0.24-0.36) K/mm3 Eos # (Auto) (0.04-0.36) K/mm3 Baso # (Auto) (0.01-0.08) K/mm3 Manual Slide Review Sodium 142 (136-145) mEq/L Potassium 3.7 (3.5-5.1) mEq/L Chloride 108 H (98-107) mEq/L Carbon Dioxide 23 (21-32) mEq/L Anion Gap 14.7 (5-15) BUN 24 H (7-18) mg/dL Creatinine 0.7 (0.55-1.02) mg/dL Est Cr Clr Drug Dosing 63.45 mL/min Estimated GFR (MDRD) > 60 (>60) mL/min BUN/Creatinine Ratio 34.3 H (14-18) Glucose 107 (83-115) mg/dL POC Glucose 103 (83-110) mg/dL Calcium 9.1 (8.5-10.1) mg/dL Magnesium 1.8 (1.8-2.4) mg/dl C-Reactive Protein 3.9 H* (<1.0) mg/dL NT-Pro-B Natriuret Pep 5168 H (0-125) pg/mL 09/03/17 Range/Units 12:13 WBC (3.98-10.04) K/mm3 RBC (3.98-5.22) M/mm3 Hgb (11.2-15.7) gm/L Hct (34.1-44.9) % MCV (79.4-94.8) fl MCH (25.6-32.2) pg MCHC (32.2-35.5) g/dl RDW Std Deviation (36.4-46.3) fL Plt Count (182-369) K/mm3 MPV (9.4-12.3) fl Neut % (Auto) (34.0-71.1) % Lymph % (Auto) (19.3-51.7) % Hodgeman % (Auto) (4.7-12.5) % Eos % (Auto) (0.7-5.8) Baso % (Auto) (0.1-1.2) % Neut # (Auto) (1.56-6.13) K/mm3 Lymph # (Auto) (1.18-3.74) K/mm3 Hodgeman # (Auto) (0.24-0.36) K/mm3 Eos # (Auto) (0.04-0.36) K/mm3 Baso # (Auto) (0.01-0.08) K/mm3 Manual Slide Review Sodium (136-145) mEq/L Potassium (3.5-5.1) mEq/L Chloride (98-107) mEq/L Carbon Dioxide (21-32) mEq/L Anion Gap (5-15) BUN (7-18) mg/dL Creatinine (0.55-1.02) mg/dL Est Cr Clr Drug Dosing mL/min Estimated GFR (MDRD) (>60) mL/min BUN/Creatinine Ratio (14-18) Glucose (83-115) mg/dL POC Glucose 111 H (83-110) mg/dL Calcium (8.5-10.1) mg/dL Magnesium (1.8-2.4) mg/dl C-Reactive Protein (<1.0) mg/dL NT-Pro-B Natriuret Pep (0-125) pg/mL Med Orders - Current: Current Medications Acetaminophen (Tylenol) 650 mg PO Q4H PRN PRN Reason: Pain (Mild 1-3)/fever Last Admin: 09/01/17 06:10 Dose: 650 mg Acetaminophen/Codeine Phosphate (Tylenol With Codeine No.3 300mg/30mg) 1 tab PO Q6H PRN PRN Reason: Pain Hydrocodone Bitart/Acetaminophen ([place] 325-5 Mg) 1 tab PO Q4H PRN PRN Reason: Pain (moderate 4-6) Amitriptyline HCl (Elavil) 10 mg PO BEDTIME [facility] Last Admin: 09/02/17 21:19 Dose: Not Given Apixaban (Eliquis) 5 mg PO BID [facility] Last Admin: 09/03/17 09:46 Dose: 5 mg Aspirin (Aspirin) 81 mg PO DAILY [facility] Last Admin: 09/03/17 09:54 Dose: Not Given Benzonatate (Tessalon Perles) 100 mg PO TID PRN PRN Reason: Cough Last Admin: 09/01/17 07:37 Dose: 100 mg Bisacodyl (Dulcolax) 5 mg PO DAILY PRN PRN Reason: Constipation Calcium Carbonate (Calcium Carbonate/Vitamin D 600 Mg-200 Unit) 1 tab PO DAILY [facility] Last Admin: 09/03/17 09:48 Dose: 1 tab Celecoxib (Celebrex) 100 mg PO DAILY [facility] Last Admin: 09/03/17 09:46 Dose: 100 mg Cholecalciferol (Vitamin D3) 1,000 units PO DAILY [facility] Last Admin: 09/03/17 09:46 Dose: 1,000 units Cyclobenzaprine HCl (Flexeril) 10 mg PO BID [facility] Last Admin: 09/03/17 09:52 Dose: Not Given Dextrose/Water (Dextrose 50% In Water) 50 ml IVPUSH ASDIRECTED PRN PRN Reason: Hypoglycemia Docusate Sodium (Colace) 100 mg PO BID PRN PRN Reason: Constipation Folic Acid (Folic Acid) 1 mg PO DAILY [facility] Last Admin: 09/03/17 09:46 Dose: 1 mg Furosemide (Lasix) 40 mg IVPUSH DAILY [facility] Last Admin: 09/03/17 09:48 Dose: 40 mg Furosemide (Lasix) 40 mg IVPUSH NOW ONE Stop: 09/03/17 15:53 Hydralazine HCl (Apresoline) 20 mg IVPUSH Q6H PRN PRN Reason: Hypertension Hydroxychloroquine Sulfate (Plaquenil) 200 mg PO BID [facility] Last Admin: 09/03/17 09:49 Dose: 200 mg Magnesium Sulfate 2 gm/ Premix 50 mls @ 25 mls/hr IV ONETIME ONE Stop: 09/03/17 17:52 Insulin Aspart (Novolog) 0 unit SUBCUT QIDACANDBED [facility] PRN Reason: Protocol Last Admin: 09/03/17 12:49 Dose: Not Given Levalbuterol HCl (Xopenex) 1.25 mg NEB QIDRT PRN PRN Reason: Shortness of Breath Levofloxacin (Levaquin) 750 mg PO Q24H [facility] Last Admin: 09/02/17 18:43 Dose: 750 mg Losartan Potassium (Cozaar) 150 mg PO DAILY [facility] Last Admin: 09/01/17 09:00 Dose: 150 mg Methotrexate (Methotrexate) 15 mg PO Fr@0900 [facility] Last Admin: 09/01/17 09:02 Dose: 15 mg Metoprolol Succinate (Toprol Xl) 100 mg PO DAILY [facility] Last Admin: 09/01/17 08:59 Dose: 100 mg Metoprolol Tartrate (Lopressor) 50 mg PO Q8H [facility] Last Admin: 09/03/17 09:50 Dose: 50 mg Multivitamins (Thera) 1 each PO DAILY [facility] Last Admin: 09/03/17 09:48 Dose: 1 each Ondansetron HCl (Zofran Odt) 4 mg PO Q6H PRN PRN Reason: nausea, able to take PO Ondansetron HCl (Zofran) 4 mg IV Q6H PRN PRN Reason: Nausea/Vomiting Pantoprazole Sodium (Protonix) 40 mg PO DAILY@0700 [facility] Last Admin: 09/03/17 06:06 Dose: 40 mg Brinzolamide/Brimonidine Tart [ Simbrinza 1%-0.2% Eye Drop 0 each EYELF BID [facility] Last Admin: 09/03/17 09:49 Dose: 1 each Canagliflozin [ (Invokana] 300 Mg) 0 each PO DAILY [facility] Last Admin: 09/03/17 09:51 Dose: 1 each Vortioxetine Hydrobromide [ Trintellix] 10 Mg 0 each PO DAILY [facility] Last Admin: 09/03/17 09:51 Dose: Not Given Polyethylene Glycol (Miralax) 17 gm PO DAILY PRN PRN Reason: Constipation Potassium Chloride (Klor-Con 10) 10 meq PO DAILY [facility] Last Admin: 09/03/17 09:48 Dose: 10 meq Potassium Chloride (Potassium Chloride) 60 meq PO ONETIME ONE Stop: 09/03/17 15:53 Senna/Docusate Sodium (Senna Plus) 1 tab PO BID PRN PRN Reason: Constipation Sertraline HCl (Zoloft) 50 mg PO BEDTIME [facility] Last Admin: 09/02/17 21:19 Dose: 50 mg Sodium Chloride (Saline Flush) 10 ml FLUSH ASDIRECTED PRN PRN Reason: Keep Vein Open Last Admin: 08/31/17 10:17 Dose: 10 ml Temazepam (Restoril) 15 mg PO BEDTIME PRN PRN Reason: Sleep Last Admin: 09/02/17 21:20 Dose: 15 mg Discontinued Medications Acetaminophen/Codeine Phosphate (Tylenol With Codeine No.3 300mg/30mg) 1 tab PO Q4H PRN PRN Reason: Pain Apixaban (Eliquis) 5 mg PO DAILY [facility] Last Admin: 09/02/17 10:16 Dose: 5 mg Cyclobenzaprine HCl (Flexeril) 10 mg PO DAILY PRN PRN Reason: Pain Diltiazem HCl (Diltiazem) 10 mg IVPUSH ONETIME ONE Stop: 08/31/17 10:09 Last Admin: 08/31/17 10:17 Dose: 10 mg Diltiazem HCl (Diltiazem) 10 mg IVPUSH ONETIME ONE Stop: 08/31/17 10:58 Last Admin: 08/31/17 11:03 Dose: 10 mg Diltiazem HCl (Diltiazem) 10 mg IVPUSH ONETIME ONE Stop: 08/31/17 12:25 Last Admin: 08/31/17 12:39 Dose: 10 mg Famotidine (Pepcid) 20 mg PO BID [facility] Last Admin: 09/01/17 08:59 Dose: 20 mg Furosemide (Lasix) 20 mg PO DAILY [facility] Hydralazine HCl (Apresoline) 10 mg IVPUSH Q6H PRN PRN Reason: Hypertension Diltiazem HCl 125 mg/ Sodium (Chloride) 125 mls @ 5 mls/hr IV TITRATE KARINA; 5 MG /HR PRN Reason: Protocol Last Titration: 09/02/17 14:24 Dose: 0 mg/hr, 0 mls/hr Levofloxacin/Dextrose 750 mg/ (Premix) 150 mls @ 100 mls/hr IV Q24H [facility] Stop: 09/01/17 23:00 Last Admin: 09/01/17 18:14 Dose: 100 mls/hr Sodium Chloride (Normal Saline) 1,000 mls @ 75 mls/hr IV ASDIRECTED [facility] Stop: 09/02/17 08:34 Last Admin: 09/01/17 05:52 Dose: 100 mls/hr Levalbuterol HCl (Xopenex) 1.25 mg NEB QIDRT [facility] Last Admin: 09/02/17 16:20 Dose: 1.25 mg Metoclopramide HCl (Reglan) 5 mg IVPUSH ONETIME ONE Stop: 08/31/17 10:06 Last Admin: 08/31/17 10:17 Dose: 5 mg Non-Formulary Medication (Dabigatran) 150 mg PO BID KARINA - Exam Quality Assessment: DVT Prophylaxis General: Alert, Oriented HEENT: Pupils Equal, Pupils Reactive, EOMI Neck: Supple, Trachea Midline, No JVD Lungs: Normal Respiratory Effort Cardiovascular: Regular Rate GI/Abdominal Exam: Normal Bowel Sounds, Soft, Non-Tender, No Organomegaly, No Distention (Female) Exam: Deferred Back Exam: Normal Inspection Extremities: Normal Inspection, Non-Tender, Normal Capillary Refill Skin: Warm Neurological: No New Focal Deficit Psy/Mental Status: Alert, Normal Affect, Normal Mood - Problem List Review Problem List Initiated/Reviewed/Updated: Yes - My Orders Last 24 Hours: My Active Orders 09/02/17 16:48 Admission Status [Patient Status] [ADT] Routine 09/02/17 17:09 Levalbuterol HCl [Xopenex] 1.25 mg NEB QIDRT PRN 09/02/17 19:00 Levofloxacin [Levaquin] 750 mg PO Q24H 09/02/17 21:00 Apixaban [Eliquis] 5 mg PO BID 09/03/17 15:52 Furosemide [Lasix] 40 mg IVPUSH NOW ONE Potassium Chloride 60 meq PO ONETIME ONE 09/03/17 15:53 Magnesium Sulfate/Water [Magnesium Sulfate 2 GM in Water 50 ML] 2 gm Premix Bag 1 bag IV ONETIME - Plan Plan:: I/P: Acute: A-fib with RVR--controlled -Hx/o a-fib but unsure if it is constant or proximal -HR in 120's in ED-->improved, will adjust oral meds using short acting for now. -12-lead shows A-fib with ST depression in V5 and V6 -ED gave diltiazem 10mg IVP x3 and started diltiazem drip -Continue diltiazem drip - titrate--stopped; increase BB as tolerated. Elevated troponin -0.2-->0.364 in ED-->demand ischemia -0.434 on floor -CKMB 1.4 -Likely demand ischemia from above -Continue to trend Bronchitis -Reports fever, non-productive cough, weakness for several days -WBC 14.56, CRP 5.6 -CXR shows increased lung markings in right chest -Xopenex QID - no albuterol as HR is uncontrolled -RT/IS -Levaquin 750mg daily -Fluids as ordered -Repeat CXR in 24-48 hrs; ordered 09/02/17 Atypical Chest pain -Chest pain 09/02 which comes and goes -"Worse when I cough"-->pleuritic, thus far negative resp work up. -Reproducible with palpation -Likely 2/2 above Elevated BNP -No reported history of CHF, No prior BNP in system -Echo in AM-->cancelled, recent 2D echo, less than 3 months ago -On daily PO lasix -> increase to 40mg IVP in AM for now -Diuresis -Monitor kidney function -Salt restrictions Dehydration -Dry mucous membranes -Reports poor oral intake -Anion gap 18.3 -IV fluids as ordered -Caution with fluids due to elevated BNP - will need to diuresis after Chronic: HLD HTN DAVIE - CPAP/RT GERD - home PPI Arthritis OA Osteoporosis RA - home methotrexate Spinal stenosis DJD Anxiety Depression Type II DM - home meds, SS insulin, QID AC and Bed glucose checks Plan: CM for discharge planning PT/OT Routine AM labs GI prophylaxis: Home PPI DVT/PE prophylaxis: BASIL hose and home Eliquis Other orders as indicated above Home medications as ordered Code Status: DNR/DNI; PCP: Dr. Rudd at [facility]. LOS>96 hours, improving, will continue diureses; DC 24-48 hours
[2017-09-03] MEDS: Levofloxacin 750 MG Tab PO SCH (18:44)
[2017-09-03] MEDS: Temazepam 15 MG Cap PO PRN (21:48)
[2017-09-03] MEDS: Sertraline 50 MG Tab PO SCH (21:48)
[2017-09-03] MEDS: Amitriptyline 10 MG Tab PO SCH (21:49)
[2017-09-03] MEDS ORDERED: Metoprolol Tartrate 5 MG/5 ML SDV IVPUSH PRN (22:37)
[2017-09-03] MEDS: Diltiazem IR 60 MG Tab PO SCH (23:08)
[2017-09-04] MEDS: Metoprolol Tartrate 50 MG Tab PO SCH ×3 (01:42→18:03)
[2017-09-04] MEDS: Diltiazem IR 60 MG Tab PO SCH ×4 (06:23→23:13)
[2017-09-04] MEDS: Pantoprazole 40 MG Tab.CR PO SCH (06:23)
--- NOTE | 2017-09-04 07:59 | CR ---
Chest: Two views of the chest were obtained. Comparison: Prior chest x-ray of 08/31/17. Heart size is normal. Tortuous thoracic aorta is seen. Lung markings mildly increased which appear chronic. No acute parenchymal densities are seen. Slight scoliosis is noted within the spine with scattered degenerative change. Impression: 1. Increased lung markings which remain stable from most recent exam which may represent mild fibrosis versus bronchitis versus mild pulmonary vascular congestion. 2. Other incidental findings. Diagnostic code #3 I agree with preliminary report from [facility], finalized at 09/02/17, 12:15 PM Central Time
[2017-09-04] MEDS: Insulin Aspart 100 Units/ML 3 ML Pen SUBCUT SCH ×3 (08:46→18:06)
[2017-09-04] MEDS: Calcium Carbonate/Vitamin D3 600 MG-200 Units Tab PO SCH (08:47)
[2017-09-04] MEDS: Celecoxib 100 MG Cap PO SCH (08:47)
[2017-09-04] MEDS: Aspirin 81 MG Tab.Chew PO SCH (08:47)
[2017-09-04] MEDS: Potassium Chloride 10 MEQ Tab.ER PO SCH (08:48)
[2017-09-04] MEDS: Apixaban 5 MG Tab PO SCH ×2 (08:48→22:21)
[2017-09-04] MEDS: Folic Acid 1 MG Tab PO SCH (08:48)
[2017-09-04] MEDS: Cyclobenzaprine 10 MG Tab PO SCH ×2 (08:48→22:25)
[2017-09-04] MEDS: Multivitamins,Therapeutic Tab PO SCH (08:49)
[2017-09-04] MEDS: Furosemide 40 MG/4 ML VIAL IVPUSH SCH (08:49)
[2017-09-04] MEDS: Cholecalciferol (Vitamin D3) 1,000 Unit Tab PO SCH (08:49)
[2017-09-04] MEDS: Hydroxychloroquine 200 MG Tab PO SCH ×2 (08:49→22:21)
[2017-09-04] MEDS: Metoprolol Succinate 50 MG Tab.ER PO SCH (09:11)
[2017-09-04] MEDS: Losartan 100 MG Tab PO SCH (09:12)
[2017-09-04] MEDS: Vortioxetine Hydrobromide [Trintellix] 10 MG PO SCH (11:52)
[2017-09-04] MEDS: Canagliflozin [Invokana] 300 MG PO SCH (12:03)
[2017-09-04] MEDS: BRINZOLAMIDE EYELF SCH (12:03)
[2017-09-04] MEDS: BRIMONIDINE TART EYELF SCH (12:03)
--- NOTE | 2017-09-04 15:11 | PCM.PN ---
- General Info Date of Service: 09/04/17 Admission Dx/Problem (Free Text): Admission Diagnosis/Problem Admission Diagnosis/Problem Atrial fibrillation with rapid ventricular response Subjective Update: Follow Up Functional Status: Reports: Pain Controlled, Tolerating Diet, Ambulating, Urinating - Review of Systems General: Denies: Fever, Weakness, Fatigue, Malaise, Chills HEENT: Reports: No Symptoms Pulmonary: Denies: Shortness of Breath Cardiovascular: Denies: Chest Pain, Palpitations, Dyspnea on Exertion, Lightheadedness Gastrointestinal: Denies: Abdominal Pain, Constipation, Decreased Appetite, Nausea, Vomiting Genitourinary: Reports: No Symptoms Musculoskeletal: Reports: No Symptoms Skin: Denies: Cyanosis, Mottled, Pallor, Diaphoresis Neurological: Denies: Confusion, Difficulty Walking, Weakness, Gait Disturbance Psychiatric: Denies: Depression, Anxiety, Agitation, Hallucinations Systems Review Comment:: No significant overnight or acute issues. Patient tells me she was told she will be going home today. She is otherwise stable and in no acute distress. Her HRs for the most part have been well controlled. - Patient Data Vitals - Most Recent: Last Vital Signs Temp 36.4 C 09/04/17 11:09 Pulse 75 09/04/17 12:20 Resp 19 09/04/17 11:09 BP 94/58 L 09/04/17 12:20 Pulse Ox 96 09/04/17 11:09 Weight - Most Recent: 73.437 kg I&O - Last 24 Hours: Intake & Output 09/04/17 09/04/17 09/04/17 06:59 14:59 22:59 Intake Total 200 120 Balance 200 120 Lab Results Last 24 Hours: Laboratory Results - last 24 hr 09/03/17 09/03/17 09/04/17 Range/Units 16:50 23:11 06:31 WBC (3.98-10.04) K/mm3 RBC (3.98-5.22) M/mm3 Hgb (11.2-15.7) gm/L Hct (34.1-44.9) % MCV (79.4-94.8) fl MCH (25.6-32.2) pg MCHC (32.2-35.5) g/dl RDW Std Deviation (36.4-46.3) fL Plt Count (182-369) K/mm3 MPV (9.4-12.3) fl Neut % (Auto) (34.0-71.1) % Lymph % (Auto) (19.3-51.7) % Creek % (Auto) (4.7-12.5) % Eos % (Auto) (0.7-5.8) Baso % (Auto) (0.1-1.2) % Neut # (Auto) (1.56-6.13) K/mm3 Lymph # (Auto) (1.18-3.74) K/mm3 Creek # (Auto) (0.24-0.36) K/mm3 Eos # (Auto) (0.04-0.36) K/mm3 Baso # (Auto) (0.01-0.08) K/mm3 Sodium (136-145) mEq/L Potassium (3.5-5.1) mEq/L Chloride (98-107) mEq/L Carbon Dioxide (21-32) mEq/L Anion Gap (5-15) BUN (7-18) mg/dL Creatinine (0.55-1.02) mg/dL Est Cr Clr Drug Dosing mL/min Estimated GFR (MDRD) (>60) mL/min BUN/Creatinine Ratio (14-18) Glucose (83-115) mg/dL POC Glucose 109 127 H 101 (83-110) mg/dL Calcium (8.5-10.1) mg/dL Magnesium (1.8-2.4) mg/dl C-Reactive Protein (<1.0) mg/dL NT-Pro-B Natriuret Pep (0-125) pg/mL 09/04/17 09/04/17 09/04/17 Range/Units 06:32 06:32 06:32 WBC 9.21 (3.98-10.04) K/mm3 RBC 5.17 (3.98-5.22) M/mm3 Hgb 15.4 (11.2-15.7) gm/L Hct 47.7 H (34.1-44.9) % MCV 92.3 (79.4-94.8) fl MCH 29.8 (25.6-32.2) pg MCHC 32.3 (32.2-35.5) g/dl RDW Std Deviation 52.4 H (36.4-46.3) fL Plt Count 194 (182-369) K/mm3 MPV 11.1 (9.4-12.3) fl Neut % (Auto) 58.8 (34.0-71.1) % Lymph % (Auto) 32.2 (19.3-51.7) % Creek % (Auto) 6.0 (4.7-12.5) % Eos % (Auto) 2.6 (0.7-5.8) Baso % (Auto) 0.2 (0.1-1.2) % Neut # (Auto) 5.41 (1.56-6.13) K/mm3 Lymph # (Auto) 2.97 (1.18-3.74) K/mm3 Creek # (Auto) 0.55 H (0.24-0.36) K/mm3 Eos # (Auto) 0.24 (0.04-0.36) K/mm3 Baso # (Auto) 0.02 (0.01-0.08) K/mm3 Sodium 139 (136-145) mEq/L Potassium 3.9 (3.5-5.1) mEq/L Chloride 103 (98-107) mEq/L Carbon Dioxide 26 (21-32) mEq/L Anion Gap 13.9 (5-15) BUN 35 H (7-18) mg/dL Creatinine 0.8 (0.55-1.02) mg/dL Est Cr Clr Drug Dosing 55.52 mL/min Estimated GFR (MDRD) > 60 (>60) mL/min BUN/Creatinine Ratio 43.8 H (14-18) Glucose 117 H (83-115) mg/dL POC Glucose (83-110) mg/dL Calcium 10.6 H (8.5-10.1) mg/dL Magnesium 2.1 (1.8-2.4) mg/dl C-Reactive Protein 1.2 H* (<1.0) mg/dL NT-Pro-B Natriuret Pep 6244 H (0-125) pg/mL 09/04/17 Range/Units 11:21 WBC (3.98-10.04) K/mm3 RBC (3.98-5.22) M/mm3 Hgb (11.2-15.7) gm/L Hct (34.1-44.9) % MCV (79.4-94.8) fl MCH (25.6-32.2) pg MCHC (32.2-35.5) g/dl RDW Std Deviation (36.4-46.3) fL Plt Count (182-369) K/mm3 MPV (9.4-12.3) fl Neut % (Auto) (34.0-71.1) % Lymph % (Auto) (19.3-51.7) % Creek % (Auto) (4.7-12.5) % Eos % (Auto) (0.7-5.8) Baso % (Auto) (0.1-1.2) % Neut # (Auto) (1.56-6.13) K/mm3 Lymph # (Auto) (1.18-3.74) K/mm3 Creek # (Auto) (0.24-0.36) K/mm3 Eos # (Auto) (0.04-0.36) K/mm3 Baso # (Auto) (0.01-0.08) K/mm3 Sodium (136-145) mEq/L Potassium (3.5-5.1) mEq/L Chloride (98-107) mEq/L Carbon Dioxide (21-32) mEq/L Anion Gap (5-15) BUN (7-18) mg/dL Creatinine (0.55-1.02) mg/dL Est Cr Clr Drug Dosing mL/min Estimated GFR (MDRD) (>60) mL/min BUN/Creatinine Ratio (14-18) Glucose (83-115) mg/dL POC Glucose 143 H (83-110) mg/dL Calcium (8.5-10.1) mg/dL Magnesium (1.8-2.4) mg/dl C-Reactive Protein (<1.0) mg/dL NT-Pro-B Natriuret Pep (0-125) pg/mL Med Orders - Current: Current Medications Acetaminophen (Tylenol) 650 mg PO Q4H PRN PRN Reason: Pain (Mild 1-3)/fever Last Admin: 09/01/17 06:10 Dose: 650 mg Acetaminophen/Codeine Phosphate (Tylenol With Codeine No.3 300mg/30mg) 1 tab PO Q6H PRN PRN Reason: Pain Hydrocodone Bitart/Acetaminophen ([place] 325-5 Mg) 1 tab PO Q4H PRN PRN Reason: Pain (moderate 4-6) Amitriptyline HCl (Elavil) 10 mg PO BEDTIME [facility] Last Admin: 09/03/17 21:49 Dose: Not Given Apixaban (Eliquis) 5 mg PO BID [facility] Last Admin: 09/04/17 08:48 Dose: 5 mg Aspirin (Aspirin) 81 mg PO DAILY [facility] Last Admin: 09/04/17 08:47 Dose: Not Given Benzonatate (Tessalon Perles) 100 mg PO TID PRN PRN Reason: Cough Last Admin: 09/01/17 07:37 Dose: 100 mg Bisacodyl (Dulcolax) 5 mg PO DAILY PRN PRN Reason: Constipation Calcium Carbonate (Calcium Carbonate/Vitamin D 600 Mg-200 Unit) 1 tab PO DAILY [facility] Last Admin: 09/04/17 08:47 Dose: 1 tab Celecoxib (Celebrex) 100 mg PO DAILY [facility] Last Admin: 09/04/17 08:47 Dose: 100 mg Cholecalciferol (Vitamin D3) 1,000 units PO DAILY [facility] Last Admin: 09/04/17 08:49 Dose: 1,000 units Cyclobenzaprine HCl (Flexeril) 10 mg PO BID [facility] Last Admin: 09/04/17 08:48 Dose: Not Given Dextrose/Water (Dextrose 50% In Water) 50 ml IVPUSH ASDIRECTED PRN PRN Reason: Hypoglycemia Diltiazem HCl (Cardizem) 60 mg PO Q6HR [facility] Last Admin: 09/04/17 12:20 Dose: Not Given Docusate Sodium (Colace) 100 mg PO BID PRN PRN Reason: Constipation Folic Acid (Folic Acid) 1 mg PO DAILY [facility] Last Admin: 09/04/17 08:48 Dose: 1 mg Furosemide (Lasix) 40 mg IVPUSH DAILY [facility] Last Admin: 09/04/17 08:49 Dose: 40 mg Hydralazine HCl (Apresoline) 20 mg IVPUSH Q6H PRN PRN Reason: Hypertension Hydroxychloroquine Sulfate (Plaquenil) 200 mg PO BID [facility] Last Admin: 09/04/17 08:49 Dose: 200 mg Insulin Aspart (Novolog) 0 unit SUBCUT QIDACANDBED [facility] PRN Reason: Protocol Last Admin: 09/04/17 12:20 Dose: Not Given Levalbuterol HCl (Xopenex) 1.25 mg NEB QIDRT PRN PRN Reason: Shortness of Breath Levofloxacin (Levaquin) 750 mg PO Q24H [facility] Last Admin: 09/03/17 18:44 Dose: 750 mg Losartan Potassium (Cozaar) 150 mg PO DAILY [facility] Last Admin: 09/04/17 09:12 Dose: 150 mg Methotrexate (Methotrexate) 15 mg PO Fr@0900 [facility] Last Admin: 09/01/17 09:02 Dose: 15 mg Metoprolol Succinate (Toprol Xl) 100 mg PO DAILY [facility] Last Admin: 09/04/17 09:11 Dose: 100 mg Metoprolol Tartrate (Lopressor) 50 mg PO Q8H [facility] Last Admin: 09/04/17 12:20 Dose: 50 mg Metoprolol Tartrate (Lopressor) 5 mg IVPUSH Q6H PRN PRN Reason: heart rate >120 Multivitamins (Thera) 1 each PO DAILY [facility] Last Admin: 09/04/17 08:49 Dose: 1 each Ondansetron HCl (Zofran Odt) 4 mg PO Q6H PRN PRN Reason: nausea, able to take PO Ondansetron HCl (Zofran) 4 mg IV Q6H PRN PRN Reason: Nausea/Vomiting Pantoprazole Sodium (Protonix) 40 mg PO DAILY@0700 [facility] Last Admin: 09/04/17 06:23 Dose: 40 mg Brinzolamide/Brimonidine Tart [ Simbrinza 1%-0.2% Eye Drop 0 each EYELF BID [facility] Last Admin: 09/04/17 12:03 Dose: Not Given Canagliflozin [ (Invokana] 300 Mg) 0 each PO DAILY [facility] Last Admin: 09/04/17 12:03 Dose: 1 each Vortioxetine Hydrobromide [ Trintellix] 10 Mg 0 each PO DAILY [facility] Last Admin: 09/04/17 11:52 Dose: Not Given Polyethylene Glycol (Miralax) 17 gm PO DAILY PRN PRN Reason: Constipation Potassium Chloride (Klor-Con 10) 10 meq PO DAILY [facility] Last Admin: 09/04/17 08:48 Dose: 10 meq Senna/Docusate Sodium (Senna Plus) 1 tab PO BID PRN PRN Reason: Constipation Sertraline HCl (Zoloft) 50 mg PO BEDTIME [facility] Last Admin: 09/03/17 21:48 Dose: 50 mg Sodium Chloride (Saline Flush) 10 ml FLUSH ASDIRECTED PRN PRN Reason: Keep Vein Open Last Admin: 08/31/17 10:17 Dose: 10 ml Temazepam (Restoril) 15 mg PO BEDTIME PRN PRN Reason: Sleep Last Admin: 09/03/17 21:48 Dose: 15 mg Discontinued Medications Acetaminophen/Codeine Phosphate (Tylenol With Codeine No.3 300mg/30mg) 1 tab PO Q4H PRN PRN Reason: Pain Apixaban (Eliquis) 5 mg PO DAILY [facility] Last Admin: 09/02/17 10:16 Dose: 5 mg Cyclobenzaprine HCl (Flexeril) 10 mg PO DAILY PRN PRN Reason: Pain Diltiazem HCl (Diltiazem) 10 mg IVPUSH ONETIME ONE Stop: 08/31/17 10:09 Last Admin: 08/31/17 10:17 Dose: 10 mg Diltiazem HCl (Diltiazem) 10 mg IVPUSH ONETIME ONE Stop: 08/31/17 10:58 Last Admin: 08/31/17 11:03 Dose: 10 mg Diltiazem HCl (Diltiazem) 10 mg IVPUSH ONETIME ONE Stop: 08/31/17 12:25 Last Admin: 08/31/17 12:39 Dose: 10 mg Famotidine (Pepcid) 20 mg PO BID [facility] Last Admin: 09/01/17 08:59 Dose: 20 mg Furosemide (Lasix) 20 mg PO DAILY [facility] Furosemide (Lasix) 40 mg IVPUSH NOW ONE Stop: 09/03/17 15:53 Last Admin: 09/03/17 16:38 Dose: 40 mg Hydralazine HCl (Apresoline) 10 mg IVPUSH Q6H PRN PRN Reason: Hypertension Diltiazem HCl 125 mg/ Sodium (Chloride) 125 mls @ 5 mls/hr IV TITRATE [facility]; 5 MG /HR PRN Reason: Protocol Last Titration: 09/02/17 14:24 Dose: 0 mg/hr, 0 mls/hr Levofloxacin/Dextrose 750 mg/ (Premix) 150 mls @ 100 mls/hr IV Q24H [facility] Stop: 09/01/17 23:00 Last Admin: 09/01/17 18:14 Dose: 100 mls/hr Sodium Chloride (Normal Saline) 1,000 mls @ 75 mls/hr IV ASDIRECTED [facility] Stop: 09/02/17 08:34 Last Admin: 09/01/17 05:52 Dose: 100 mls/hr Magnesium Sulfate 2 gm/ Premix 50 mls @ 25 mls/hr IV ONETIME ONE Stop: 09/03/17 17:52 Last Admin: 09/03/17 16:38 Dose: 25 mls/hr Levalbuterol HCl (Xopenex) 1.25 mg NEB QIDRT [facility] Last Admin: 09/02/17 16:20 Dose: 1.25 mg Metoclopramide HCl (Reglan) 5 mg IVPUSH ONETIME ONE Stop: 08/31/17 10:06 Last Admin: 08/31/17 10:17 Dose: 5 mg Non-Formulary Medication (Dabigatran) 150 mg PO BID [facility] Potassium Chloride (Potassium Chloride) 60 meq PO ONETIME ONE Stop: 09/03/17 15:53 Last Admin: 09/03/17 16:37 Dose: 60 meq - Exam Quality Assessment: Supplemental Oxygen General: Alert, Oriented, Cooperative, No Acute Distress HEENT: Pupils Equal, Pupils Reactive, EOMI, Mucous Membr. Moist/[place] Neck: Supple, Trachea Midline Lungs: Normal Respiratory Effort, Decreased Breath Sounds Cardiovascular: Irregular Rhythm GI/Abdominal Exam: Normal Bowel Sounds, Soft, Non-Tender, No Organomegaly, No Distention, No Abnormal Bruit (Female) Exam: Deferred Back Exam: Normal Inspection, Decreased Range of Motion Extremities: Normal Inspection, Normal Range of Motion, Non-Tender, No Pedal Edema, Normal Capillary Refill Peripheral Pulses: 2+: Dorsalis Pedis (L), Dorsalis Pedis (R) Skin: Warm, Dry, Intact Neurological: No New Focal Deficit Psy/Mental Status: Alert, Normal Affect, Normal Mood - Problem List Review Problem List Initiated/Reviewed/Updated: Yes - Plan Plan:: I/P: Acute: S/p A-fib with RVR -HR is now controlled -Hx/o a-fib but unsure if it is constant or proximal -HR in 120's in ED-->improved, will adjust oral meds using short acting for now. -12-lead shows A-fib with ST depression in V5 and V6 -ED gave diltiazem 10mg IVP x3 and started diltiazem drip -Now oral Cardizem and Metoprolol Succinate for rate control medications -She is on Eliquis for stroke prophylaxis Bronchitis, Improved -2/2 Human Metapneumovirus -Reports fever, non-productive cough, weakness for several days -WBC 14.56--> 9.21, CRP 5.6--> 1.2 -CXR shows increased lung markings in right chest -Xopenex QID - no albuterol as HR is uncontrolled -RT/IS -D/c Levaquin 750mg daily -Mycoplasma pneumonia and Strep pneumonia Ag test-both negative -Repeat CXR ordered 09/02/17: fibrosis vs bronchitis -High risk for pulmonary fibrosis from long use of MTX (she has RA); consider CT scan in AM Pulmonary Fibrosis with 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 (PASP is elevated at 40.7 mmHg via 2D echo) -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 -Reproducible with palpation -Likely 2/2 above S/p Dehydration -Dry mucous membranes -Reports poor oral intake -Anion gap 18.3 -IV fluids as ordered -Caution with fluids due to elevated BNP - will need to diuresis after Elevated Troponin -2/2 Demand Ischemia -0.2-->0.364 in ED -0.434 on floor -CKMB 1.4 Chronic: A-Fib HLD HTN AGUIRRE DAVIE - CPAP/RT GERD - home PPI Arthritis OA Muscle Aches Osteoporosis RA - home methotrexate Spinal Stenosis DJD/Spondylolisthesis Anxiety Depression Type II DM - home meds, SS insulin, QID AC and Bed glucose checks Plan: She is clinically stable Continue current treatment Continue PT/OT Routine AM labs GI prophylaxis: Home PPI DVT/PE prophylaxis: BASIL hose and home Eliquis Other orders as indicated above Refer to Pulmonology after d/c Code Status: DNR/DNI; PCP: Dr. Rudd at [facility] LOS >96 hours, improving, will continue diureses. After talking to patient and explained my reasoning why I do not not feel comfortable discharging her; she agreed for possible discharge in AM provided she remains stable.
[2017-09-04] MEDS: Levofloxacin 750 MG Tab PO SCH (18:01)
[2017-09-04] MEDS: Sertraline 50 MG Tab PO SCH (22:21)
[2017-09-04] MEDS: Temazepam 15 MG Cap PO PRN (22:21)
[2017-09-04] MEDS: Amitriptyline 10 MG Tab PO SCH (22:24)
[2017-09-05] MEDS: BRIMONIDINE TART EYELF SCH ×2 (01:29→10:04)
[2017-09-05] MEDS: BRINZOLAMIDE EYELF SCH ×2 (01:29→10:04)
[2017-09-05] MEDS: Insulin Aspart 100 Units/ML 3 ML Pen SUBCUT SCH ×2 (01:29→08:01)
[2017-09-05] MEDS: Metoprolol Tartrate 50 MG Tab PO SCH ×2 (03:53→10:01)
[2017-09-05] MEDS: Diltiazem IR 60 MG Tab PO SCH (06:44)
[2017-09-05] MEDS: Pantoprazole 40 MG Tab.CR PO SCH (06:44)
--- NOTE | 2017-09-05 07:20 | PCM.DCSUM1 ---
Discharge Summary - Hospital Course Free Text/Narrative:: Amrita Velez is a 76 yo female who presents to our ED today (08/31/17) via [facility]" with symptoms of generalized weakness, nausea, dry heaves, and anterior chest discomfort. Symptoms reportedly started earlier this morning. She does report a dry nonproductive cough for about the past 4-5 days. She's not sure if she's had any fever or chills with these symptoms. Chest discomfort does not radiate. She does have a history of chronic A. fib and is on a course for blood thinning. She is unsure if it is constant A. fib or if it is proximal. She's not feeling well this morning so she did not take her morning meds however she did take her albuterol inhaler. Because of this she did not receive her usual dose of diltiazem 360. She is unsure if she has a history of CAD. She is a prior smoker who quit 13 years ago. In the ED temperature was 97.4. Pulse 122. Respirations 13. Blood pressure 96 /60. Pulse ox 89%. EKG was obtained which shows A. fib with ST depression in V5 and V6. Labs are obtained: W CBC is elevated 14.56. Hemoglobin high at 16.1. Hematocrit high at 51.1. She is normocytic. Platelet are low at 179, 000. Neutrophils are elevated at 84.3%. Sodium was good at 139. Potassium 4.3. Chloride 102. Anion gap is high at 18.3. BUN is 1.0 EGFR is 54. Glucose is high at 189. Calcium is 9.6. Liver enzymes looked good with AST at 20, ALT at 33, alkaline phosphatase at 7.2. Troponin is 0.209. ProBNP is 6045. Protein 7.4. Albumin 3.7. Troponins repeated and is elevated to 0.364. She was given 10 mg IV push of diltiazem 3. She was also started on a Cardizem drip of 5 mg. Her rate did drop down to the 105-110 range however did come back up into the 120s and low 130s. Her drip was increased 10 mg per hour. Once her believed to be elevated due to demand ischemia. Chest x-ray was obtained and interpreted by Dr. Kent as having slightly increased lung markings on the right side is an interval change from previous exam. Please correlate if patient has symptoms of bronchitis. Advised also related to technique from slight patient rotation and portable technique. Lungs otherwise are clear. Heart size is normal. Mild tortuosity of the thoracic aorta seen. Bony structures are osteopenic. There is a history of: Retinal detachment, A. fib, HLD, HTN, palpitations, sleep apnea, GERD, gastritis, arthritis, gout, OA, osteoporosis, RA, spinal stenosis, DJD, anxiety, depression, type II DM. She is a former smoker. She says really admitted to the ICU. She is a full code. Her PCP is Dr. Yasemin Liz at [facility]. - Discharge Data Discharge Date: 09/05/17 (08/31/17) Discharge Disposition: Home, Self-Care 01 Condition: Good - Discharge Diagnosis/Problem(s) (1) Atrial fibrillation with rapid ventricular response SNOMED Code(s): 294424447825895 ICD Code: I48.91 - UNSPECIFIED ATRIAL FIBRILLATION Status: Resolved Priority: High Current Visit: Yes (2) Atypical chest pain SNOMED Code(s): 862580950 ICD Code: R07.89 - OTHER CHEST PAIN Status: Resolved Priority: High Current Visit: Yes (3) Bronchitis SNOMED Code(s): 50681135 ICD Code: J40 - BRONCHITIS, NOT SPECIFIED ACUTE OR CHRONIC Status: Resolved Priority: High Current Visit: Yes Problem Details: Human metapneumovirus (4) Dehydration SNOMED Code(s): 93439181 ICD Code: E86.0 - DEHYDRATION Status: Resolved Priority: High Current Visit: Yes (5) Elevated troponin SNOMED Code(s): 183453872, 193285456 ICD Code: R74.8 - ABNORMAL LEVELS OF OTHER SERUM ENZYMES Status: Resolved Priority: High Current Visit: Yes - Patient Summary/Data Operative Procedure(s) Performed: None Complications: None Consults: Consultations 08/31/17 18:58 Consult to Case Management [CONS] Routine OT Evaluation and Treatment [CONS] Routine PT Evaluation and Treatment [CONS] Routine Respiratory Care Assess and Treatment [CONS] Routine Labs Pending at D/C: None Recommended Follow-up Testing/Procedures: Follow up with PCP, Dr. Rudd within one week of discharge. -Follow up on chest CT obtained while in hospital for ? pulmonary fibrosis Push fluids- important to stay hydrated No need for further antibiotic for bronchitis- you were treated for 5 days while in hospital. Check blood sugars as prior to admission and as needed- A1C in [address] Rudd. Planned Operative Procedure(s) after DC: None Hospital Course: I/P: Acute: S/p A-fib with RVR -HR is now controlled -Hx/o a-fib but unsure if it is constant or proximal -HR in 120's in ED-->improved, will adjust oral meds using short acting for now---DC meds, back LA cardizem, increase BB dosing--continue usual home dose with short acting in addition--this has keep rate controlled while in hospital -12-lead shows A-fib with ST depression in V5 and V6 -ED gave diltiazem 10mg IVP x3 and started diltiazem drip--DC'd -Now oral Cardizem and Metoprolol Succinate for rate control medications - as above -She is on Eliquis for stroke prophylaxis Bronchitis, Improved -2/2 Human Metapneumovirus -Reports fever, non-productive cough, weakness for several days -WBC 14.56--> 9.21, CRP 5.6--> 1.2 -CXR shows increased lung markings in right chest- repeat is stable---Repeat CXR ordered 09/02/17: fibrosis vs bronchitis -Xopenex QID - no albuterol as HR is uncontrolled -RT/IS -D/c Levaquin 750mg daily, completed 5 day course. -Mycoplasma pneumonia and Strep pneumonia Ag test-both negative -High risk for pulmonary fibrosis from long use of MTX (she has RA); CT scan this am per Dr. Dietrich Pulmonary Fibrosis with 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 (PASP is elevated at 40.7 mmHg via 2D echo) -likely 2/2 from [facility] use of MTX due to RA -CT scan in AM to assess severity- per Dr. Dietrich -Pulmonology eval after d/c -She may also need right heart cath to confirm 2D echo findings HF with Preserved EF -2/2 Severely dilated bilateral atrium (cardiac valvular dysfunction) -No reported history of CHF, No prior BNP in system; recent ProBNP 6244 -2D Echo 03/03/17: EF 60-65% with Severely Dilated Bilateral Atria; PASP is 40.7 mmHg (elevated) -Continue oral Lasix for diuresis -Monitor kidney function -Salt restrictions Resolved: S/p Atypical Chest pain -Chest pain 3/10 which comes and goes -"Worse when I cough"-->pleuritic, thus far negative resp work up. -Reproducible with palpation -Likely 2/2 above S/p Dehydration -Dry mucous membranes -Reports poor oral intake -Anion gap 18.3 -IV fluids as ordered -Caution with fluids due to elevated BNP - will need to diuresis after Elevated Troponin -2/2 Demand Ischemia -0.2-->0.364 in ED -0.434 on floor -CKMB 1.4 Chronic: A-Fib HLD HTN- stable AGUIRRE DAVIE - CPAP/RT GERD - home PPI Arthritis OA Muscle Aches Osteoporosis RA - home methotrexate Spinal Stenosis DJD/Spondylolisthesis Anxiety Depression Type II DM - home meds, SS insulin, QID AC and Bed glucose checks----cont usual home routine with usual DM f/up with PCP on DC Plan: She is clinically stable Continue current treatment Continue PT/OT Routine AM labs GI prophylaxis: Home PPI DVT/PE prophylaxis: BASIL hose and home Eliquis Other orders as indicated above Refer to Pulmonology after d/c Code Status: DNR/DNI; PCP: Dr. Rudd at [facility] LOS >96 hours, improving, will continue diureses. Per Dr. Dietrich day prior to discharge--After talking to patient and explained my reasoning why I do not not feel comfortable discharging her; she agreed for possible discharge in AM provided she remains stable. -Plan DC home today after CT scan - Patient Instructions Diet: Heart Healthy Diet, Drink 8-10+ Glasses/Day, Diabetic Diet Activity: As Tolerated Showering/Bathing: May Shower Notify Provider of: Fever, Increased Pain, Nausea and/or Vomiting (chest pain, palpiatations, worsening shortness of breath) - Discharge Plan Prescriptions/Med Rec: Aspirin 81 mg PO DAILY #30 tab.chew Cyclobenzaprine [Flexeril] 10 mg PO BID #10 tablet Metoprolol Succinate [Toprol XL 50mg] 100 mg PO DAILY #30 tab.er Home Medications: Home Meds Brinzolamide/Brimonidine Tart [Simbrinza 1%-0.2% Eye Drops] 1 drop EYELF BID 08/11 [History] Celecoxib [CeleBREX] 100 mg PO Q48H 03/27/16 [History] Cholecalciferol (Vitamin D3) [Vitamin D3] 1,000 units PO DAILY 03/27/16 [History ] Folic Acid 1 mg PO DAILY 03/27/16 [History] Hydroxychloroquine [Plaquenil] 200 mg PO BID 03/27/16 [History] Methotrexate 15 mg PO FR 03/27/16 [History] Omeprazole 40 mg PO DAILY 03/27/16 [History] Sertraline [Zoloft] 50 mg PO BEDTIME 03/27/16 [History] Simvastatin [Zocor] 20 mg PO BEDTIME 03/27/16 [History] Diltiazem [Cardizem CD] 360 mg PO DAILY #30 cap.cd 03/31/16 [Rx] Amitriptyline [Elavil] 10 mg PO BEDTIME 05/10/17 [History] Bisoprolol [Zebeta] 5 mg PO DAILY 05/10/17 [History] Calcium Carbonate/Vitamin D3 [Calcium 600 + Vit D 200] 1 tab PO BID 05/10/17 [ History] Canagliflozin [Invokana] 300 mg PO DAILY 05/10/17 [History] Furosemide [Lasix] 20 mg PO DAILY 05/10/17 [History] Valsartan 160 mg PO DAILY 05/10/17 [History] Apixaban [Eliquis] 5 mg PO BID 08/31/17 [History] Multivitamin [Daily Rodrigo] 1 each PO DAILY 08/31/17 [History] Potassium Chloride 10 meq PO DAILY 08/31/17 [History] Vortioxetine Hydrobromide [Trintellix] 10 mg PO DAILY 08/31/17 [History] Levalbuterol Tartrate [Xopenex HFA] 2 puff INH Q6H PRN 09/01/17 [History] Aspirin 81 mg PO DAILY #30 tab.chew 09/05/17 [Rx] Cyclobenzaprine [Flexeril] 10 mg PO BID #10 tablet 09/05/17 [Rx] Metoprolol Succinate 100 mg PO DAILY 09/05/17 [History] Metoprolol Succinate [Toprol XL 50mg] 100 mg PO DAILY #30 tab.er 09/05/17 [Rx] Patient Handouts: Atrial Fibrillation, [place]qq-[place]-Ovel, Acute Bronchitis, Adult Referrals: Angel Pulido MD [Primary Care Provider] - 09/12/17 2:15 pm (Ask your doctor about having a TDaP vaccine. Dr. Pulido is out so you will see Bernadette Saavedra [employer]) - Discharge Summary/Plan Comment DC Time >30 min.: Yes (45 min) - General Info Date of Service: 09/05/17 Admission Dx/Problem (Free Text: Admission Diagnosis/Problem Admission Diagnosis/Problem Atrial fibrillation with rapid ventricular response Doing well, feeling well, slept ok. No CP or palpitations. No calls on telemetry overnight. Is anxious for DC home today as she wanted to go yesterday. Functional Status: Reports: Pain Controlled, Tolerating Diet, Ambulating, Urinating. Denies: New Symptoms - Review of Systems General: Reports: No Symptoms. Denies: Fever HEENT: Reports: No Symptoms Pulmonary: Reports: Shortness of Breath (chronic), Cough (minimal--improved ) Cardiovascular: Reports: No Symptoms Gastrointestinal: Reports: No Symptoms. Denies: Abdominal Pain, Nausea, Vomiting Genitourinary: Reports: No Symptoms Neurological: Reports: No Symptoms Psychiatric: Reports: No Symptoms - Patient Data Vitals - Most Recent: Last Vital Signs Temp 98.4 F 09/05/17 03:55 Pulse 79 09/05/17 03:55 Resp 16 09/05/17 03:55 BP 90/65 09/05/17 03:55 Pulse Ox 95 09/05/17 03:55 Weight - Most Recent: 161 lb 6.4 oz I&O - Last 24 hours: Intake & Output 09/04/17 09/05/17 09/05/17 22:59 06:59 14:59 Intake Total 500 300 Balance 500 300 Lab Results - Last 24 hrs: Laboratory Results - last 24 hr 09/04/17 09/04/17 09/04/17 Range/Units 06:32 06:32 06:32 WBC 9.21 (3.98-10.04) K/mm3 RBC 5.17 (3.98-5.22) M/mm3 Hgb 15.4 (11.2-15.7) gm/L Hct 47.7 H (34.1-44.9) % MCV 92.3 (79.4-94.8) fl MCH 29.8 (25.6-32.2) pg MCHC 32.3 (32.2-35.5) g/dl RDW Std Deviation 52.4 H (36.4-46.3) fL Plt Count 194 (182-369) K/mm3 MPV 11.1 (9.4-12.3) fl Neut % (Auto) 58.8 (34.0-71.1) % Lymph % (Auto) 32.2 (19.3-51.7) % Coleman % (Auto) 6.0 (4.7-12.5) % Eos % (Auto) 2.6 (0.7-5.8) Baso % (Auto) 0.2 (0.1-1.2) % Neut # (Auto) 5.41 (1.56-6.13) K/mm3 Lymph # (Auto) 2.97 (1.18-3.74) K/mm3 Coleman # (Auto) 0.55 H (0.24-0.36) K/mm3 Eos # (Auto) 0.24 (0.04-0.36) K/mm3 Baso # (Auto) 0.02 (0.01-0.08) K/mm3 Sodium 139 (136-145) mEq/L Potassium 3.9 (3.5-5.1) mEq/L Chloride 103 (98-107) mEq/L Carbon Dioxide 26 (21-32) mEq/L Anion Gap 13.9 (5-15) BUN 35 H (7-18) mg/dL Creatinine 0.8 (0.55-1.02) mg/dL Est Cr Clr Drug Dosing 55.52 mL/min Estimated GFR (MDRD) > 60 (>60) mL/min BUN/Creatinine Ratio 43.8 H (14-18) Glucose 117 H (83-115) mg/dL POC Glucose (83-110) mg/dL Calcium 10.6 H (8.5-10.1) mg/dL Magnesium 2.1 (1.8-2.4) mg/dl C-Reactive Protein 1.2 H* (<1.0) mg/dL NT-Pro-B Natriuret Pep 6244 H (0-125) pg/mL 09/04/17 09/04/17 09/04/17 Range/Units 11:21 16:50 20:55 WBC (3.98-10.04) K/mm3 RBC (3.98-5.22) M/mm3 Hgb (11.2-15.7) gm/L Hct (34.1-44.9) % MCV (79.4-94.8) fl MCH (25.6-32.2) pg MCHC (32.2-35.5) g/dl RDW Std Deviation (36.4-46.3) fL Plt Count (182-369) K/mm3 MPV (9.4-12.3) fl Neut % (Auto) (34.0-71.1) % Lymph % (Auto) (19.3-51.7) % Coleman % (Auto) (4.7-12.5) % Eos % (Auto) (0.7-5.8) Baso % (Auto) (0.1-1.2) % Neut # (Auto) (1.56-6.13) K/mm3 Lymph # (Auto) (1.18-3.74) K/mm3 Coleman # (Auto) (0.24-0.36) K/mm3 Eos # (Auto) (0.04-0.36) K/mm3 Baso # (Auto) (0.01-0.08) K/mm3 Sodium (136-145) mEq/L Potassium (3.5-5.1) mEq/L Chloride (98-107) mEq/L Carbon Dioxide (21-32) mEq/L Anion Gap (5-15) BUN (7-18) mg/dL Creatinine (0.55-1.02) mg/dL Est Cr Clr Drug Dosing mL/min Estimated GFR (MDRD) (>60) mL/min BUN/Creatinine Ratio (14-18) Glucose (83-115) mg/dL POC Glucose 143 H 116 H 144 H (83-110) mg/dL Calcium (8.5-10.1) mg/dL Magnesium (1.8-2.4) mg/dl C-Reactive Protein (<1.0) mg/dL NT-Pro-B Natriuret Pep (0-125) pg/mL 09/05/17 Range/Units 06:28 WBC (3.98-10.04) K/mm3 RBC (3.98-5.22) M/mm3 Hgb (11.2-15.7) gm/L Hct (34.1-44.9) % MCV (79.4-94.8) fl MCH (25.6-32.2) pg MCHC (32.2-35.5) g/dl RDW Std Deviation (36.4-46.3) fL Plt Count (182-369) K/mm3 MPV (9.4-12.3) fl Neut % (Auto) (34.0-71.1) % Lymph % (Auto) (19.3-51.7) % Coleman % (Auto) (4.7-12.5) % Eos % (Auto) (0.7-5.8) Baso % (Auto) (0.1-1.2) % Neut # (Auto) (1.56-6.13) K/mm3 Lymph # (Auto) (1.18-3.74) K/mm3 Coleman # (Auto) (0.24-0.36) K/mm3 Eos # (Auto) (0.04-0.36) K/mm3 Baso # (Auto) (0.01-0.08) K/mm3 Sodium (136-145) mEq/L Potassium (3.5-5.1) mEq/L Chloride (98-107) mEq/L Carbon Dioxide (21-32) mEq/L Anion Gap (5-15) BUN (7-18) mg/dL Creatinine (0.55-1.02) mg/dL Est Cr Clr Drug Dosing mL/min Estimated GFR (MDRD) (>60) mL/min BUN/Creatinine Ratio (14-18) Glucose (83-115) mg/dL POC Glucose 98 (83-110) mg/dL Calcium (8.5-10.1) mg/dL Magnesium (1.8-2.4) mg/dl C-Reactive Protein (<1.0) mg/dL NT-Pro-B Natriuret Pep (0-125) pg/mL Med Orders - Current: Current Medications Acetaminophen (Tylenol) 650 mg PO Q4H PRN PRN Reason: Pain (Mild 1-3)/fever Last Admin: 09/01/17 06:10 Dose: 650 mg Acetaminophen/Codeine Phosphate (Tylenol With Codeine No.3 300mg/30mg) 1 tab PO Q6H PRN PRN Reason: Pain Hydrocodone Bitart/Acetaminophen ([place] 325-5 Mg) 1 tab PO Q4H PRN PRN Reason: Pain (moderate 4-6) Amitriptyline HCl (Elavil) 10 mg PO BEDTIME [facility] Last Admin: 09/04/17 22:24 Dose: Not Given Apixaban (Eliquis) 5 mg PO BID [facility] Last Admin: 09/04/17 22:21 Dose: 5 mg Aspirin (Aspirin) 81 mg PO DAILY [facility] Last Admin: 09/04/17 08:47 Dose: Not Given Benzonatate (Tessalon Perles) 100 mg PO TID PRN PRN Reason: Cough Last Admin: 09/01/17 07:37 Dose: 100 mg Bisacodyl (Dulcolax) 5 mg PO DAILY PRN PRN Reason: Constipation Calcium Carbonate (Calcium Carbonate/Vitamin D 600 Mg-200 Unit) 1 tab PO DAILY [facility] Last Admin: 09/04/17 08:47 Dose: 1 tab Celecoxib (Celebrex) 100 mg PO DAILY [facility] Last Admin: 09/04/17 08:47 Dose: 100 mg Cholecalciferol (Vitamin D3) 1,000 units PO DAILY [facility] Last Admin: 09/04/17 08:49 Dose: 1,000 units Cyclobenzaprine HCl (Flexeril) 10 mg PO BID [facility] Last Admin: 09/04/17 22:25 Dose: Not Given Dextrose/Water (Dextrose 50% In Water) 50 ml IVPUSH ASDIRECTED PRN PRN Reason: Hypoglycemia Diltiazem HCl (Cardizem) 60 mg PO Q6HR [facility] Last Admin: 09/05/17 06:44 Dose: 60 mg Docusate Sodium (Colace) 100 mg PO BID PRN PRN Reason: Constipation Folic Acid (Folic Acid) 1 mg PO DAILY [facility] Last Admin: 09/04/17 08:48 Dose: 1 mg Furosemide (Lasix) 40 mg IVPUSH DAILY [facility] Last Admin: 09/04/17 08:49 Dose: 40 mg Hydralazine HCl (Apresoline) 20 mg IVPUSH Q6H PRN PRN Reason: Hypertension Hydroxychloroquine Sulfate (Plaquenil) 200 mg PO BID [facility] Last Admin: 09/04/17 22:21 Dose: 200 mg Insulin Aspart (Novolog) 0 unit SUBCUT QIDACANDBED [facility] PRN Reason: Protocol Last Admin: 09/05/17 01:29 Dose: Not Given Levalbuterol HCl (Xopenex) 1.25 mg NEB QIDRT PRN PRN Reason: Shortness of Breath Levofloxacin (Levaquin) 750 mg PO Q24H [facility] Last Admin: 09/04/17 18:01 Dose: 750 mg Losartan Potassium (Cozaar) 150 mg PO DAILY [facility] Last Admin: 09/04/17 09:12 Dose: 150 mg Methotrexate (Methotrexate) 15 mg PO Fr@0900 [facility] Last Admin: 09/01/17 09:02 Dose: 15 mg Metoprolol Succinate (Toprol Xl) 100 mg PO DAILY [facility] Last Admin: 09/04/17 09:11 Dose: 100 mg Metoprolol Tartrate (Lopressor) 50 mg PO Q8H [facility] Last Admin: 09/05/17 03:53 Dose: Not Given Metoprolol Tartrate (Lopressor) 5 mg IVPUSH Q6H PRN PRN Reason: heart rate >120 Multivitamins (Thera) 1 each PO DAILY [facility] Last Admin: 09/04/17 08:49 Dose: 1 each Ondansetron HCl (Zofran Odt) 4 mg PO Q6H PRN PRN Reason: nausea, able to take PO Ondansetron HCl (Zofran) 4 mg IV Q6H PRN PRN Reason: Nausea/Vomiting Pantoprazole Sodium (Protonix) 40 mg PO DAILY@0700 [facility] Last Admin: 09/05/17 06:44 Dose: 40 mg Brinzolamide/Brimonidine Tart [ Simbrinza 1%-0.2% Eye Drop 0 each EYELF BID [facility] Last Admin: 09/05/17 01:29 Dose: Not Given Canagliflozin [ (Invokana] 300 Mg) 0 each PO DAILY [facility] Last Admin: 09/04/17 12:03 Dose: 1 each Vortioxetine Hydrobromide [ Trintellix] 10 Mg 0 each PO DAILY [facility] Last Admin: 09/04/17 11:52 Dose: Not Given Polyethylene Glycol (Miralax) 17 gm PO DAILY PRN PRN Reason: Constipation Potassium Chloride (Klor-Con 10) 10 meq PO DAILY [facility] Last Admin: 09/04/17 08:48 Dose: 10 meq Senna/Docusate Sodium (Senna Plus) 1 tab PO BID PRN PRN Reason: Constipation Sertraline HCl (Zoloft) 50 mg PO BEDTIME [facility] Last Admin: 09/04/17 22:21 Dose: 50 mg Sodium Chloride (Saline Flush) 10 ml FLUSH ASDIRECTED PRN PRN Reason: Keep Vein Open Last Admin: 08/31/17 10:17 Dose: 10 ml Temazepam (Restoril) 15 mg PO BEDTIME PRN PRN Reason: Sleep Last Admin: 09/04/17 22:21 Dose: 15 mg Discontinued Medications Acetaminophen/Codeine Phosphate (Tylenol With Codeine No.3 300mg/30mg) 1 tab PO Q4H PRN PRN Reason: Pain Apixaban (Eliquis) 5 mg PO DAILY [facility] Last Admin: 09/02/17 10:16 Dose: 5 mg Cyclobenzaprine HCl (Flexeril) 10 mg PO DAILY PRN PRN Reason: Pain Diltiazem HCl (Diltiazem) 10 mg IVPUSH ONETIME ONE Stop: 08/31/17 10:09 Last Admin: 08/31/17 10:17 Dose: 10 mg Diltiazem HCl (Diltiazem) 10 mg IVPUSH ONETIME ONE Stop: 08/31/17 10:58 Last Admin: 08/31/17 11:03 Dose: 10 mg Diltiazem HCl (Diltiazem) 10 mg IVPUSH ONETIME ONE Stop: 08/31/17 12:25 Last Admin: 08/31/17 12:39 Dose: 10 mg Famotidine (Pepcid) 20 mg PO BID [facility] Last Admin: 09/01/17 08:59 Dose: 20 mg Furosemide (Lasix) 20 mg PO DAILY [facility] Furosemide (Lasix) 40 mg IVPUSH NOW ONE Stop: 09/03/17 15:53 Last Admin: 09/03/17 16:38 Dose: 40 mg Hydralazine HCl (Apresoline) 10 mg IVPUSH Q6H PRN PRN Reason: Hypertension Diltiazem HCl 125 mg/ Sodium (Chloride) 125 mls @ 5 mls/hr IV TITRATE [facility]; 5 MG /HR PRN Reason: Protocol Last Titration: 09/02/17 14:24 Dose: 0 mg/hr, 0 mls/hr Levofloxacin/Dextrose 750 mg/ (Premix) 150 mls @ 100 mls/hr IV Q24H [facility] Stop: 09/01/17 23:00 Last Admin: 09/01/17 18:14 Dose: 100 mls/hr Sodium Chloride (Normal Saline) 1,000 mls @ 75 mls/hr IV ASDIRECTED [facility] Stop: 09/02/17 08:34 Last Admin: 09/01/17 05:52 Dose: 100 mls/hr Magnesium Sulfate 2 gm/ Premix 50 mls @ 25 mls/hr IV ONETIME ONE Stop: 09/03/17 17:52 Last Admin: 09/03/17 16:38 Dose: 25 mls/hr Levalbuterol HCl (Xopenex) 1.25 mg NEB QIDRT [facility] Last Admin: 09/02/17 16:20 Dose: 1.25 mg Metoclopramide HCl (Reglan) 5 mg IVPUSH ONETIME ONE Stop: 08/31/17 10:06 Last Admin: 08/31/17 10:17 Dose: 5 mg Non-Formulary Medication (Dabigatran) 150 mg PO BID [facility] Potassium Chloride (Potassium Chloride) 60 meq PO ONETIME ONE Stop: 09/03/17 15:53 Last Admin: 09/03/17 16:37 Dose: 60 meq - Exam Quality Assessment: Reports: DVT Prophylaxis General: Reports: Alert, Oriented, Cooperative, No Acute Distress HEENT: Reports: Pupils Equal, EOMI, Mucous Membr. Moist/[place] Neck: Reports: Supple Lungs: Reports: Normal Respiratory Effort, Decreased Breath Sounds Cardiovascular: Reports: Irregular Rhythm GI/Abdominal Exam: Normal Bowel Sounds, Soft, Non-Tender (Female) Exam: Deferred Rectal (Female) Exam: Deferred Extremities: Normal Inspection, No Pedal Edema, Normal Capillary Refill Neurological: Reports: No New Focal Deficit Psy/Mental Status: Reports: Alert, Normal Affect, Normal Mood *Q Meaningful Use (DIS) - VTE *Q VTE Criteria *Q: - Stroke *Q Stroke Criteria *Q: - AMI *Q AMI Criteria *Q:
--- NOTE | 2017-09-05 09:45 | CT ---
CT chest Technique: Multiple axial sections were obtained from above the dome of the lung apices inferiorly through the lung bases. Intravenous contrast was not utilized. Comparison: No prior chest CT, prior chest x-ray of 09/02/17. Findings: Calcified gallstones are seen within the gallbladder. Heart is mildly enlarged. No pericardial thickening is seen. Mild coronary artery calcification is seen. Atherosclerotic calcifications are seen within the thoracic aorta and branch vessels. Low density nodule identified within the left lobe of the thyroid gland measuring approximately 1.7 cm in size which is nonspecific. No axillary adenopathy is seen. Minimal interstitial change is seen within both lung bases which is most likely due to slight fibrosis. Lungs otherwise are clear. No acute pulmonary densities are seen within either lung. Bone window settings were reviewed showing scattered degenerative change within the spine. Impression: 1. Findings as noted above. Nothing acute is appreciated. Diagnostic code #3
[2017-09-05] MEDS: Multivitamins,Therapeutic Tab PO SCH (10:00)
[2017-09-05] MEDS ORDERED: Furosemide 40 MG Tab PO SCH (10:00)
[2017-09-05] MEDS: Metoprolol Succinate 50 MG Tab.ER PO SCH (10:01)
[2017-09-05] MEDS: Losartan 100 MG Tab PO SCH (10:01)
[2017-09-05] MEDS: Calcium Carbonate/Vitamin D3 600 MG-200 Units Tab PO SCH (10:01)
[2017-09-05] MEDS: Folic Acid 1 MG Tab PO SCH (10:02)
[2017-09-05] MEDS: Celecoxib 100 MG Cap PO SCH (10:02)
[2017-09-05] MEDS: Apixaban 5 MG Tab PO SCH (10:02)
[2017-09-05] MEDS: Cyclobenzaprine 10 MG Tab PO SCH (10:03)
[2017-09-05] MEDS: Potassium Chloride 10 MEQ Tab.ER PO SCH (10:03)
[2017-09-05] MEDS: Cholecalciferol (Vitamin D3) 1,000 Unit Tab PO SCH (10:03)
[2017-09-05] MEDS: Aspirin 81 MG Tab.Chew PO SCH (10:03)
[2017-09-05] MEDS: Hydroxychloroquine 200 MG Tab PO SCH (10:03)
[2017-09-05] MEDS: Vortioxetine Hydrobromide [Trintellix] 10 MG PO SCH (10:04)
[2017-09-05] MEDS: Canagliflozin [Invokana] 300 MG PO SCH (10:05)
[2017-09-05 10:08] VITALS: BP 114/58
[2017-09-05] MEDS ORDERED: Pneumococcal 13-Valent Conjugate Vaccine 0.5 ML Syringe IM ONE (10:49)
== END 2017-09-05 11:38 | disposition home or self-care (01) | DRG 310 ==
LOC: SUPCPDRO 09:28 → JD.ED 09:28 → JD.ICU 14:56 → JD.MS 09-02 16:48
PROVIDERS: ADMIT Internal Medicine Cardiovascular Disease; ATTEND Internal Medicine Cardiovascular Disease
DX: I48.2 Chronic atrial fibrillation (principal); I10 Essential (primary) hypertension; E78.5 Hyperlipidemia, unspecified; E78.00 Pure hypercholesterolemia, unspecified; G47.30 Sleep apnea, unspecified; G47.33 Obstructive sleep apnea (adult) (pediatric); K21.9 Gastro-esophageal reflux disease without esophagitis; M06.9 Rheumatoid arthritis, unspecified; M81.0 Age-related osteoporosis without current pathological fracture; M19.90 Unspecified osteoarthritis, unspecified site; F41.9 Anxiety disorder, unspecified; F32.9 Major depressive disorder, single episode, unspecified; E11.9 Type 2 diabetes mellitus without complications; J40 Bronchitis, not specified as acute or chronic; E86.0 Dehydration; R74.8 Abnormal levels of other serum enzymes; R79.89 Other specified abnormal findings of blood chemistry; Z66 Do not resuscitate; Z87.891 Personal history of nicotine dependence; H54.7 Unspecified visual loss; Z88.0 Allergy status to penicillin; Z88.8 Allergy status to other drugs, medicaments and biological substances; Z79.01 Long term (current) use of anticoagulants; Z79.82 Long term (current) use of aspirin; Z79.899 Other long term (current) drug therapy
CPT/HCPCS: 36415; 71045; 80053; 83880; 84484 ×2; 85025; 86738; 87804 ×2; 93005; 96365; 96366; 96375; 96376; 99285; J2765; J3490 ×3; J7030; J7050; 71046; 71046-26; 71250; 71250-26; 80048; 81001; 82553; 82962; 83735; 86140; 87486; 87581; 87633; 87798; 87899; 93010; 94640; 97162-GP; 97165-GO; A9270-GY; J1940; J1956; J3475; J7040; J7612; J8610

== ENCOUNTER 2020-11-24 07:11 | Day surgery (SDC) | payer MEDICARE, BC ==
--- NOTE | 2020-11-24 06:48 | PCM.PREANE ---
Preanesthetic Assessment - Procedure Proposed Procedure: Hemorrhoidectomy - Anesthesia/Transfusion/Family Hx Anesthesia History: Prior Anesthesia Reaction (PONV) Family History of Anesthesia Reaction: No Transfusion History: Prior Transfusion Without Reaction Intubation History: Unknown - Review of Systems General: No Symptoms Pulmonary: No Symptoms Cardiovascular: Dyspnea on Exertion Gastrointestinal: Other ("blood on toliet paper when wiping after using the bathroom") Neurological: No Symptoms (Hx of small intracranial bleed from fall, no decifits following) Other: Reports: Diabetes, Neck Pain - Physical Assessment NPO Status Date: 11/23/20 NPO Status Time: 22:00 Vital Signs: BP 129/68 HR 74 RR18 97.8 97% RA Height: 1.65 m Weight: 81.3 kg ASA Class: 3 Mental Status: Alert & Oriented x3 Dentition: Reports: Dentures (upper and lowers) Thyro-Mental Finger Breadths: 3 Mouth Opening Finger Breadths: 2 ROM/Head Extension: Full Lungs: Clear to Auscultation, Normal Respiratory Effort Cardiovascular: No Murmurs, Irregular Rhythm (Afib) - Lab Values: Reviewed and okay to proceed - Imaging/EKG Impressions: EKG 06/30/20 reviewed AFIB at 82 Stress Test December 2019 showing negative ischemia ECHO EF 50-60%, mild mitral valve regurg - Allergies Allergies/Adverse Reactions: Allergies Allergy/AdvReac Type Severity Reaction Status Date / Time Penicillins Allergy Rash Verified 08/31/17 14:48 ranitidine [From Zantac] AdvReac Nausea and Verified 09/01/17 08:22 Vomiting - Blood Blood Available: No Product(s) Available: None - Anesthesia Plan Pre-Op Medication Ordered: Beta Bobbi Beta Bobbi: Metoprolol Med Last Dose Date: 11/23/20 Med Last Dose Time: 22:00 - Acknowledgements Anesthesia Type Planned: MAC Pt an Appropriate Candidate for the Planned Anesthesia: Yes Alternatives and Risks of Anesthesia Discussed w Pt/Guardian: Yes Pt/Guardian Understands and Agrees with Anesthesia Plan: Yes PreAnesthesia Questionnaire HEENT History: Reports: Cataract, Impaired Vision, Retinal Detachment, Other (See Below) Other HEENT History: has glasses, dentures Cardiovascular History: Reports: Afib, High Cholesterol, Hypertension, Other (See Below) Other Cardiovascular History: palpitations, CHF, dyspnea Respiratory History: Reports: COPD, Sleep Apnea, SOB Other Respiratory History: Former smoker Gastrointestinal History: Reports: Gastritis, GERD (with stricture), Hemorrhoids, Inflammatory Bowel Disease Genitourinary History: Reports: None Other OB/BYN History: hysterectomy and mesh in place to hold her bladder up Musculoskeletal History: Reports: Arthritis, Gout, Osteoarthritis, Osteoporosis, RA, Other (See Below) Other Musculoskeletal History: muscle aches, spinal stenosis, spondylolthesis tenosynovits of ankle, degenerative joint disease, stress fracture, ACDF 07/08/20 Neurological History: Reports: Other (See Below) Other Neuro History: cervical pain, spinal stenosis, hx of intracranial hemorrage Psychiatric History: Reports: Anxiety, Depression Endocrine/Metabolic History: Reports: Diabetes, Type II Other Endocrine/Metabolic History: "Pre-diabetic" Hematologic History: Reports: None, Blood Transfusion(s) Immunologic History: Reports: None Oncologic (Cancer) History: Reports: None Other Oncologic History: "Skin cancer to forehead. I get it removed every year" Dermatologic History: Reports: Other (See Below) Other Dermatologic History: skin cancers she has removed every year to forehead - Infectious Disease History Infectious Disease History: Reports: Chicken Pox, Measles - Past Surgical History HEENT Surgical History: Reports: Cataract Surgery, Retinal, Tonsillectomy Cardiovascular Surgical History: Reports: None Respiratory Surgical History: Reports: None GI Surgical History: Reports: Appendectomy, Colonoscopy Female Surgical History: Reports: Hysterectomy, Other (See Below) Other Female Surgeries/Procedures: rectocele repair Endocrine Surgical History: Reports: None Neurological Surgical History: Reports: Other (See Below) Other Neurological Surgeries/Procedures: ACDF 07/08/20 Musculoskeletal Surgical History: Reports: Hip Replacement, Knee Replacement, Shoulder Replacement, Other (See Below) Other Musculoskeletal Surgeries/Procedures:: bilateral great toe surgery ("replaced"), left total hip replacement, bilateral knee replacements Oncologic Surgical History: Reports: None Dermatological Surgical History: Reports: None - Past Imaging History Past Imaging History: Reports: Cardiac Echo, PFT, Stress Testing, Xray (PFT within normal limits per report but suggesting minimal small airway disease Chest x-ray 06/30/20: Nothing acute notes, heart size and mediastinum are within normal limits, slight stable tortuosity of thiracic aorta seen, lungs clear with no acute parenchymal change, scattered disc space narrowing) - SUBSTANCE USE Tobacco Use Status *Q: Former Tobacco User Tobacco Use Within Last Twelve Months: No Second Hand Smoke Exposure: No Days Per Week of Alcohol Use: 0 Recreational Drug Use History: No - HOME MEDS Home Medications: Home Meds Brinzolamide/Brimonidine Tart [Simbrinza 1%-0.2% Eye Drops] 1 drop EYELF BID 03/27/16 [History] Celecoxib [CeleBREX] 100 mg PO Q48H 03/27/16 [History] Cholecalciferol (Vitamin D3) [Vitamin D3] 1,000 units PO DAILY 03/27/16 [History] Folic Acid 1 mg PO DAILY 03/27/16 [History] Hydroxychloroquine [Plaquenil] 200 mg PO BID 03/27/16 [History] Methotrexate 15 mg PO FR 03/27/16 [History] Omeprazole 40 mg PO DAILY 03/27/16 [History] Sertraline [Zoloft] 50 mg PO BEDTIME 03/27/16 [History] Simvastatin [Zocor] 20 mg PO BEDTIME 03/27/16 [History] Diltiazem [Cardizem CD] 360 mg PO DAILY #30 cap.cd 03/31/16 [Rx] Amitriptyline [Elavil] 10 mg PO BEDTIME 05/10/17 [History] Bisoprolol [Zebeta] 5 mg PO DAILY 05/10/17 [History] Calcium Carbonate/Vitamin D3 [Calcium 600 + Vit D 200] 1 tab PO BID 05/10/17 [History] Canagliflozin [Invokana] 300 mg PO DAILY 05/10/17 [History] Furosemide [Lasix] 20 mg PO DAILY 05/10/17 [History] Valsartan 160 mg PO DAILY 05/10/17 [History] Apixaban [Eliquis] 5 mg PO BID 08/31/17 [History] Multivitamin [Daily Rodrigo] 1 each PO DAILY 08/31/17 [History] Potassium Chloride 10 meq PO DAILY 08/31/17 [History] Vortioxetine [Trintellix] 10 mg PO DAILY 08/31/17 [History] Levalbuterol Tartrate [Xopenex HFA] 2 puff INH Q6H PRN 09/01/17 [History] Aspirin 81 mg PO DAILY #30 tab.chew 09/05/17 [Rx] Cyclobenzaprine [Flexeril] 10 mg PO BID #10 tablet 09/05/17 [Rx] Metoprolol Succinate 100 mg PO DAILY 09/05/17 [History] Metoprolol Succinate [Toprol XL 50mg] 100 mg PO DAILY #30 tab.er 09/05/17 [Rx] Hydrocodone/Acetaminophen [Vicodin Hp 10-300 mg Tablet] 1 each PO Q6H PRN #20 tablet 11/24/20 [Rx] - CURRENT (IN HOUSE) MEDS Current Meds: Current Medications Lactated Ringer's (Ringers, Lactated) 1,000 mls @ 125 mls/hr IV ASDIRECTED KARINA Stop: 11/24/20 23:00 Lidocaine/Sodium Bicarbonate (Lidocaine 1%/Sod Bicarbonate In Ns 8.4% 1 Ml Syringe) 0.25 ml IDERM ONETIME PRN PRN Reason: Prior to IV Start Stop: 11/24/20 18:00 Sodium Chloride (Sodium Chloride 0.9% 10 Ml Syringe) 10 ml FLUSH ASDIRECTED PRN PRN Reason: Keep Vein Open Stop: 11/24/20 18:00
[~2020-11-24 07:11] MED LIST changes: +Lidocaine 1% 4 ML ONE; +Lidocaine 1%/Sod Bicarbonate in NS 8.4% 1 ML Syringe IDERM PRN; -Lidocaine 1%/Sod Bicarbonate in NS 8.4% 1 ML Syringe IV PRN; +Propofol 200 MG/20 ML SDV ONE; +fentaNYL 250 MCG/5 ML SDV ONE
[2020-11-24] MEDS ORDERED: Lidocaine 1% with EPINEPHrine 1:100,000 10 ML MDV ONE (07:16)
[2020-11-24] MEDS ORDERED: Bacitracin Oint 15 GM Tube ONE (07:20)
[2020-11-24] MEDS ORDERED: Albuterol 0.083% 2.5 MG/3 ML Neb Soln NEB ONE (07:24)
[2020-11-24] MEDS ORDERED: Midazolam 1 MG/ML 2 ML SDV ONE (08:40)
[2020-11-24] MEDS: Bupivacaine 0.5%/EPINEPHrine 1:200,000 50 ML MDV ONE ×2 (08:55→09:05)
[2020-11-24] MEDS ORDERED: Propofol 200 MG/20 ML SDV ONE ×2 (09:08→09:19)
--- NOTE | 2020-11-24 09:54 | PCM48HPAN ---
Post Anesthesia Note - EVALUATION WITHIN 48HRS OF ANESTHETIC Vital Signs in Normal Range: Yes Patient Participated in Evaluation: Yes Respiratory Function Stable: Yes Airway Patent: Yes Cardiovascular Function Stable: Yes Hydration Status Stable: Yes Pain Control Satisfactory: Yes Nausea and Vomiting Control Satisfactory: Yes Mental Status Recovered: Yes Vital Signs: Last Vital Signs Temp 97.8 F 11/24/20 07:17 Pulse 74 11/24/20 07:17 Resp 18 11/24/20 07:17 BP 129/68 11/24/20 07:17 Pulse Ox 100 11/24/20 07:47 Same Day vital signs BP 102/50 HR 85 RR 16 Temp 97.4 Sat 100% 2 L - COMMENTS/OBSERVATIONS Free Text/Narrative:: Patient denies nausea and pain at this time. Patient tolerated procedure well. VSS. Alert and oriented x3.
[2020-11-24 10:07] VITALS: BP 114/76; PULSE 77
--- NOTE | 2020-11-24 10:18 | PCM.PRNOTE ---
- Free Text/Narrative Note: Date: 11/24/2020 Operation: single column hemorrhoidectomy Surgeon: Sam Rocha MD Findings: prominent three-column external and internal hemorrhoids. Low sphincter tone. Rectocele. Right anterior hemorrhoidal column excised. Detailed Report: The patient was taken to the operating room and placed in supine position. Timeout was performed and monitored anesthesia care was initiated. Once the patient was sedated, she was repositioned into lithotomy. The perineum and anal canal were prepped with iodine solution. 0.5% Marcaine with epinephrine was injected around the anorectal complex for block effect. The right anterior hemorrhoidal column appeared most prominent and likely most symptomatic with its external component. Local anesthetic was injected submucosally along the projection of the hemorrhoid. An incision was made at the anoderm at the lateralmost aspect of the external component of the hemorrhoid. Blunt dissection with a hemostat was performed working towards the sphincter. Care was taken to avoid injury to muscle fibers. The hemorrhoid was dissected from distal to proximal using monopolar energy. A straight clamp was placed at the base of the internal hemorrhoidal column. At the apex of the internal hemorrhoid, a chromic gut suture was placed prior to complete removal of he morrhoidal tissue. The hemorrhoid was removed and the Chromic Gut suture was run from proximal to distal to approximate the edges of the mucosal defect. Once this was completed, hemostasis appeared satisfactory. An additional small external component like a hemorrhoidal skin tag was removed sharply using monopolar energy. Hemostasis appeared satisfactory. The moistened roll of Kerlix was inserted into the anal canal to pack the site. A dressing of dry ABD and mesh panties was applied. The patient tolerated the procedure well.
== END 2020-11-24 10:34 | disposition home or self-care (01) ==
LOC: JD.SDS 07:11
PROVIDERS: ATTEND Surgery
DX: K64.8 Other hemorrhoids (principal); K64.4 Residual hemorrhoidal skin tags; I48.91 Unspecified atrial fibrillation; E78.5 Hyperlipidemia, unspecified; I50.9 Heart failure, unspecified; K21.9 Gastro-esophageal reflux disease without esophagitis; I11.0 Hypertensive heart disease with heart failure; M06.9 Rheumatoid arthritis, unspecified; E11.9 Type 2 diabetes mellitus without complications; Z88.0 Allergy status to penicillin; Z79.01 Long term (current) use of anticoagulants; Z79.899 Other long term (current) drug therapy; Z98.890 Other specified postprocedural states
CPT/HCPCS: 46260; 82947; 94640; A9270; J2250; J2370; J2704; J3010; J3490; J7120; 00902; 99100

== ENCOUNTER 2022-08-12 16:21 | Emergency (ER) | payer MEDICARE, BC ==
[2022-08-12] MEDS ORDERED: Lidocaine 1% 10 ML MDV INJECT ONE (17:10)
[2022-08-12] MEDS ORDERED: Diphtheria,Pertussis(Acell),Tetanus Vaccine 0.5 ML Syringe IM ONE (18:43)
[2022-08-12] MEDS ORDERED: Morphine 2 MG/ML SYRINGE IM ONE (19:23)
[2022-08-12] MEDS ORDERED: Acetaminophen 325 MG Tab PO ONE (19:32)
[2022-08-12 20:44] VITALS: BP 153/70; PULSE 103
== END 2022-08-12 20:43 | disposition home or self-care (01) ==
LOC: JD.ED 16:21
DX: S12.110A Anterior displaced Type II dens fracture, initial encounter for closed fracture (principal); S01.511A Laceration without foreign body of lip, initial encounter; S00.83XA Contusion of other part of head, initial encounter; E86.0 Dehydration; I48.91 Unspecified atrial fibrillation; E78.00 Pure hypercholesterolemia, unspecified; I11.0 Hypertensive heart disease with heart failure; I50.9 Heart failure, unspecified; J44.9 Chronic obstructive pulmonary disease, unspecified; K21.9 Gastro-esophageal reflux disease without esophagitis; M10.9 Gout, unspecified; E11.9 Type 2 diabetes mellitus without complications; Z23 Encounter for immunization; Z87.891 Personal history of nicotine dependence; Z88.0 Allergy status to penicillin; Z88.8 Allergy status to other drugs, medicaments and biological substances; Z79.899 Other long term (current) drug therapy; Z79.01 Long term (current) use of anticoagulants; W18.30XA Fall on same level, unspecified, initial encounter; Y92.002 Bathroom of unspecified non-institutional (private) residence as the place of occurrence of the external cause
CPT/HCPCS: 12011; 36415; 70450; 71045; 72125; 80053; 84484; 85025; 85610; 85730; 90471; 90715; 93005; 99284; A9270; J3490

== ENCOUNTER 2023-10-30 07:44 | Emergency (ER) | payer MEDICARE, BC ==
[2023-10-30] MEDS: methylPREDNISolone Sodium Succinate 125 MG/2 ML SDV IVPUSH ONE (07:59)
[2023-10-30] MEDS: Diltiazem 25 MG/5 ML SDV IVPUSH ONE (08:02)
[2023-10-30] MEDS: Sodium Chloride 0.9% 10 ML Syringe FLUSH PRN ×2 (08:02→11:52)
[2023-10-30] MEDS: Diltiazem 125 MG in Sodium Chloride 0.9% 100 ML IV SCH (08:03)
[2023-10-30] MEDS: Levalbuterol HCl 1.25 MG/3 ML Neb NEB ONE (08:13)
[2023-10-30 08:41] LABS: BASOPHILS PERCENT AUTO 0.3 % (0.0-1.0); EOSINOPHILS PERCENT AUTO 0.1 % (0.0-6.0); HEMATOCRIT 42.7 % (37.0-47.0); HEMOGLOBIN 13.1 gm/dl (12.0-16.0); IMMATURE GRAN ABSOLUTE AUTO 0.09 K/mm3 (0.00-0.05); IMMATURE GRAN PERCENT AUTO 0.7 % (0.0-0.4); LYMPHOCYTES ABSOLUTE AUTO 2.5 K/mm3 (1.0-4.8); LYMPHOCYTES PERCENT AUTO 19.7 % (24.0-44.0); MEAN CORPUSCULAR HEMOGLOBIN 27.7 pg (28.0-32.0); MEAN CORPUSCULAR HGB CONC 30.7 g/dl (32.0-36.0); MEAN CORPUSCULAR VOLUME 90.3 fl (83.0-99.0); MEAN PLATELET VOLUME 10.8 fl (9.4-12.3); MONOCYTES PERCENT AUTO 8.2 % (0.0-8.0); NEUTROPHILS ABSOLUTE AUTO 8.8 K/mm3 (1.8-7.7); NRBC ABSOLUTE 0.04 (0.00-0.02); NRBC PERCENT 0.3 % (0.0-0.2); PLATELET COUNT,PLT 256 K/mm3 (150-400); RED BLOOD CELL COUNT 4.73 M/mm3 (4.10-5.30); WHITE BLOOD CELL COUNT,WBC 12.44 K/mm3 (3.9-11.3)
[2023-10-30 08:56] LABS: ALANINE AMINOTRANSFERASE,ALT 262 U/L (14-59); ALBUMIN 3.3 g/dl (3.4-5.0); ALKALINE PHOSPHATASE 74 U/L (46-116); ANION GAP 22.9 (5-15); ASPARTATE AMNIOTRANSFERASE,AST 408 U/L (15-37); BILIRUBIN TOTAL 1.4 mg/dL (0.2-1.0); BLOOD UREA NITROGEN,BUN 23 mg/dL (7-18); BUN/CREATININE RATIO 16.4 (14-18); CALCIUM 9.6 mg/dL (8.5-10.1); CARBON DIOXIDE,CO2 15 mEq/L (21-32); CHLORIDE,CL 101 mEq/L (98-107); CREATININE 1.4 mg/dL (0.55-1.02); ESTIMATED GFR 38 mL/min (>60); GLUCOSE RANDOM 130 mg/dL (70-99); MAGNESIUM 1.9 mg/dL (1.8-2.4); POTASSIUM,K 4.9 mEq/L (3.5-5.1); PROTEIN TOTAL,TP 6.7 g/dl (6.4-8.2); SODIUM,NA 134 mEq/L (136-145)
[2023-10-30 09:01] LABS: TROPONIN I HIGH SENSITIVITY 60 pg/mL (<=51)
[2023-10-30 09:16] VITALS: BP 127/104; PULSE 183
[2023-10-30 11:23] LABS: INR 1.51; PROTHROMBIN TIME 15.7 SECONDS (9.7-12.0)
[2023-10-30] MEDS: cefTRIAXone 2 GM in Sodium Chloride 0.9% 100 ML IV ONE (11:49)
[2023-10-30 12:12] LABS: LACTIC ACID 5.2 mmol/L (0.4-2.0)
[2023-10-30 12:24] LABS: APPEARANCE,URINE SLT CLOUDY (Clear); BILIRUBIN,URINE 1+ (Negative); COLOR,URINE DARK YELLOW (Yellow); GLUCOSE,URINE NEGATIVE (Negative); KETONES,URINE NEGATIVE (Negative); LEUKOCYTE ESTERASE,URINE NEGATIVE (Negative); NITRITE,URINE NEGATIVE (Negative); OCCULT BLOOD,URINE TRACE-LYSED (Negative); PH,URINE 5.5 (5.0-8.0); PROTEIN,URINE 3+ (Negative)
[2023-10-30 12:51] LABS: BACTERIA,URINE FEW /hpf (FEW); MUCUS,URINE MODERATE /hpf (FEW); RBC,URINE 0-5 /hpf (0-5)
[2023-10-30] MEDS: Sodium Chloride 0.9% 500 ML IV ONE (12:57)
[2023-10-30] MEDS: Furosemide 40 MG/4 ML VIAL IVPUSH ONE (12:58)
[2023-10-30] MEDS: metroNIDAZOLE/Normal Saline 500 MG in Premix Bag 1 BAG IV ONE (13:05)
[2023-10-31 00:30] LABS: HYALINE CASTS,URINE 0-5 /lpf (0-5)
== END 2023-10-30 14:55 ==
LOC: JD.ED 07:44
DX: A41.9 Sepsis, unspecified organism (principal); I48.91 Unspecified atrial fibrillation; I50.9 Heart failure, unspecified; I11.0 Hypertensive heart disease with heart failure; K81.9 Cholecystitis, unspecified; K21.9 Gastro-esophageal reflux disease without esophagitis; E11.9 Type 2 diabetes mellitus without complications; Z88.0 Allergy status to penicillin; Z88.8 Allergy status to other drugs, medicaments and biological substances; Z88.5 Allergy status to narcotic agent; Z79.899 Other long term (current) drug therapy; Z79.2 Long term (current) use of antibiotics; Z90.49 Acquired absence of other specified parts of digestive tract; Z90.710 Acquired absence of both cervix and uterus
CPT/HCPCS: 36415; 71045; 71045-26; 76705; 76705-26; 80053; 81001; 83605; 83735; 83880; 84484; 85025; 85610; 86140; 87040; 93005; 93010; 94640; 94762; 96365; 96366; 96367; 96368; 96375; 99285; 99285-25; J0696; J1836; J1940; J2930; J3490; J7030; J7612-GY